=== PATIENT | female | born 1960 | race Caucasian/White ===

== ENCOUNTER 2022-11-30 19:14 | Observation (INO) | payer MEDICARE, MEDICAID, SELFPAY ==
--- NOTE | ~2022-11-30 | CT_ITS ---
EXAMINATION: CT ABDOMEN AND PELVIS WITHOUT CONTRAST CLINICAL INFORMATION: Diarrhea COMPARISON: None available. TECHNIQUE: Multidetector volumetric imaging was performed from the superior aspect of the liver through the pubic symphysis. Sagittal and coronal reformatted images were obtained on the technologist's workstation. This CT examination was performed using dose optimization techniques as appropriate, variously including the following: *Automated exposure control *Adjustment of mA and/or kV according to patient size (this includes techniques or standardized protocols for targeted exams where dose is matched to indication/reason for exam; i.e. extremities or head) *Use of iterative reconstruction technique DLP: 360 mGy-cm FINDINGS: LUNG BASES: The visualized lung bases are unremarkable. LIVER, GALLBLADDER, AND BILIARY TREE: The liver is normal in size, shape, and attenuation. No focal hepatic lesion or biliary ductal dilatation is present. Status post. PANCREAS: Unremarkable. SPLEEN: Unremarkable. ADRENAL GLANDS: Unremarkable. KIDNEYS AND URETERS: The kidneys are normal in size, shape, and attenuation. Bilateral nephrolithiasis present with multiple nonobstructing punctate calculi bilaterally. No hydronephrosis, hydroureter, or ureteral caliculi seen. No perinephric stranding. BLADDER: Unremarkable. GASTROINTESTINAL TRACT: Stomach is distended with gas and food material Colonic diverticula are present without diverticulitis. The small and large bowel are otherwise unremarkable. The appendix is unremarkable. ABDOMINAL WALL: No significant hernia is appreciated. LYMPH NODES: No retroperitoneal lymphadenopathy. VASCULAR: Unremarkable. PELVIC VISCERA: Right ovarian cyst is present measuring 4.7 x 3.7 x 3.8 cm. This cyst is simple appearing and because of its size and the patient's age, a follow-up ultrasound is recommended in 6-12 months. Normal anteverted uterus is present. The left ovary contains some calcification but is unremarkable. No free pelvic fluid. OSSEOUS STRUCTURES: Degenerative changes are seen most prominent at L5-S1. CT/CT abdomen pelvis wo IV con IMPRESSION: 1. Bilateral nonobstructing punctate renal calculi. 2. Colonic diverticula without diverticulitis. 3. Right ovarian cyst. Follow-up ultrasound in 6-12 months is recommended. Fleischner guidelines were followed.
--- NOTE | ~2022-11-30 | CT_ITS ---
EXAMINATION: CT CHEST WITH CONTRAST CLINICAL INFORMATION: Right upper lobe nodule COMPARISON: Chest radiograph 11/30/2022 Small ill-defined nodule right upper lobe. Recommend CT chest. TECHNIQUE: Multidetector volumetric CT imaging of the chest was obtained after the administration of 50 mL of Omnipaque 350 intravenous contrast without immediate adverse reactions. Axial MIP volume rendering provided. Sagittal and coronal reformatted images were obtained. This CT examination was performed using dose optimization techniques as appropriate, variously including the following: *Automated exposure control *Adjustment of mA and/or kV according to patient size (this includes techniques or standardized protocols for targeted exams where dose is matched to indication/reason for exam; i.e. extremities or head) *Use of iterative reconstruction technique DLP: 178 mGy-cm FINDINGS: The exam is markedly degraded by motion artifact. LUNGS: The lungs are clear with no evidence of inflammation or nodules. No corresponding abnormality is seen for the radiographic finding on the chest x-ray. MEDIASTINUM: The mediastinum is normal. PLEURA: There is no pleural effusion. No pleural mass or thickening. AXILLA: No lymphadenopathy. UPPER ABDOMEN: Status post cholecystectomy OSSEOUS STRUCTURES: Mild degenerative changes are present in the spine CT/CT chest w IV con IMPRESSION: A worrisome finding is not present to correspond to the abnormality seen on the chest radiograph. This exam is markedly degraded by motion artifact. Fleischner guidelines were followed.
--- NOTE | ~2022-11-30 | CT_ITS ---
EXAMINATION: CT HEAD WITHOUT CONTRAST CLINICAL INFORMATION: Headache COMPARISON: None. TECHNIQUE: Contiguous axial imaging was performed from the skull base to vertex without intravenous administration of contrast. Coronal and sagittal reformatted images are performed at the CT scanner. [This CT examination was performed using dose optimization techniques as appropriate, variously including the following: *Automated exposure control *Adjustment of mA and/or kV according to patient size (this includes techniques or standardized protocols for targeted exams where dose is matched to indication/reason for exam; i.e. extremities or head) *Use of iterative reconstruction technique] DLP: 555 mGy-cm. FINDINGS: There is no evidence of acute intracranial hemorrhage or territorial infarction. No abnormal mass-effect or midline shift is seen. Fuentes to white matter differentiation is well preserved. No extra-axial fluid collections are identified. There is generalized global volume loss. There is moderate prominence of the ventricles and the sulci . There is mild hypodensity of the periventricular white matter due to chronic small vessel ischemic disease. There are vascular calcifications of the internal carotid arteries bilaterally. There is no osseous abnormality. The mastoid air cells and visualized portions of the paranasal sinuses are well-aerated. CT/CT head/brain wo IV con IMPRESSION: No acute intracranial pathology.
--- NOTE | ~2022-11-30 | XR_ITS ---
EXAMINATION: XR CHEST CLINICAL INFORMATION: Chest pain COMPARISON: None available. TECHNIQUE: Frontal view of the chest was obtained. FINDINGS: There is mild blunting of left CP angle likely pleural thickening. The lungs are expanded without acute consolidation. There is a small ill-defined 6 mm nodule right upper lobe. Heart size is enlarged. Pulmonary vascularity is prominent without congestion. No gross bony abnormality seen. XR/XR chest 1V IMPRESSION: 1. Cardiomegaly with mild pulmonary vascular congestion. 2. Mild blunting of left CP angle likely pleural thickening. 3. Small ill-defined nodule right upper lobe. Recommend CT chest.
[2022-11-30 19:27] VITALS: BP 96/44; BP 96/54; PULSE 70; PULSE 72; RESP 18; TEMP 36.7; O2SAT 98; BMI 23.3
--- NOTE | 2022-11-30 19:45 | ECG_ITS ---
Test Reason : dizz Blood Pressure : / mmHG Vent. Rate : 067 BPM Atrial Rate : 067 BPM P-R Int : 166 ms QRS Dur : 086 ms QT Int : 382 ms P-R-T Axes : 011 -03 018 degrees QTc Int : 403 ms Normal sinus rhythm Normal ECG No previous ECGs available Referred By: Nara Morse Electronically Signed By:MARIA ELENA AIKEN
--- NOTE | 2022-11-30 20:00 | ED.SYNCOPE ---
HPI - Syncope General Chief Complaint: Syncope Stated Complaint: syncopal episode Time Seen by Provider: 11/30/22 19:16 History of Present Illness HPI narrative: Patient is a 62-year-old female from long term complaining of having a syncopal episode while walking to the bathroom. Patient felt very lightheaded dizzy then had a syncopal episode. Staff noted patient passed out for approximately 1 minute. No new chest pain. No bloody stool. The diarrhea was brown in color. Patient feel very weak. Question head injury. Not on blood thinner. Positive history of chronic pain. No coughing congestion upper respiratory symptoms. Related Data Home Medications Medication Instructions Recorded Confirmed aluminum-mag hydroxide-simethicone 30 ml PO QID PRN GI UPSET 11/30/22 11/30/22 200 mg-200 mg-20 mg/5 mL oral susp calcium carbonate 500 mg calcium 500 mg PO Q4H PRN Acid Reflux 11/30/22 11/30/22 (1,250 mg) chewable tablet cholecalciferol (vitamin D3) 25 25 mcg PO DAILY 11/30/22 11/30/22 mcg (1,000 unit) tablet clonazepam 0.5 mg tablet 0.5 mg PO BID PRN Anxiety 11/30/22 11/30/22 cyanocobalamin (vitamin B-12) 100 500 mcg PO DAILY 11/30/22 11/30/22 mcg tablet lidocaine 5 % topical patch 1 patch topical DAILY PRN Pain 11/30/22 11/30/22 lisinopril 10 mg tablet 10 mg PO DAILY 11/30/22 11/30/22 loperamide 2 mg capsule 2 mg PO Q4H PRN Diarrhea 11/30/22 11/30/22 nicotine (polacrilex) 2 mg gum 2 mg PO Q2H PRN CRAVINGS 11/30/22 11/30/22 oxycodone 5 mg tablet 5 mg PO Q6H PRN Pain 11/30/22 11/30/22 quetiapine 25 mg tablet 50 mg PO TID PRN Agitation 11/30/22 11/30/22 trazodone 50 mg tablet 50 mg PO BEDTIME PRN Sleep 11/30/22 11/30/22 Allergies Allergy/AdvReac Type Severity Reaction Status Date / Time No Known Allergies Allergy Verified 11/30/22 19:45 Review of Systems Review of Systems: Positive syncope Yes all other systems are reviewed and are negative [facility] Past Medical History Attestation statement: The following information was validated with the patient. Social History Social History Advance Directives: No Advance Directives Information Provided: No Physical Exam Vital Signs: Vital Signs: Last Vital Signs Temp 98 F 11/30/22 20:52 Pulse 72 11/30/22 20:56 Resp 21 H 11/30/22 20:52 BP 98/46 L 11/30/22 20:56 Pulse Ox 98 11/30/22 20:52 O2 Del Method Room Air 11/30/22 20:52 BMI result Body Mass Index 23.3 Appearance: Alert. Oriented X3. No acute distress. Eyes: Pupils equal, round and reactive to light. ENT: Pharynx normal. Neck: Normal inspection. Neck supple. No lymph nodes noted. No crepitus CVS: Normal heart rate and rhythm. Pulses normal. Normal S1 and S2 Respiratory: No respiratory distress. Breath sounds normal. No Wheezing. No rales Abdomen: Soft and nontender. No rigidity. No distention. good BS x4 Skin: Skin warm and dry. Normal skin color. Normal skin turgor. Extremities: No lower extremity edema. Neurovascular intact to all extremities. No Lacerations. No Rash Neuro: Oriented X 3. No motor deficit. No sensory deficit. Moving all extermities. No slurred speech Medications Administered Discontinued Medications Generic Name Dose Route Start Last Admin Trade Name Freq PRN Reason Stop Dose Admin Sodium Chloride 1,000 mls @ 999 mls/hr 11/30/22 19:45 11/30/22 20:17 Ns IV 11/30/22 20:45 999 mls/hr .Q1H1M AD Administration Ondansetron HCl 4 mg 11/30/22 19:45 11/30/22 20:17 Ondansetron Hcl 4 Mg/2 Ml Vial IVPUSH 11/30/22 19:46 4 mg ONCE ONE Administration Medical Decision Making Medical Decision Making [facility] Narrative: Patient is a 62-year-old female with generalized malaise weakness diarrhea and then had syncopal episode while sitting on a toilet noted to have low blood pressure. Patient's symptoms most likely secondary to dehydration. Patient's LFTs are normal no evidence of biliary issues. CT scan of the head showed no evidence of bleeding. CT scan of the abdomen pelvis showed no acute obstruction abscess perforation. Patient given 2 L of IV fluids. Symptomatic leaf feels improved. Blood pressure still about 100/60. My interpretation patient's EKG showed a sinus pattern heart rate is 70 ME QRS QT within normal limits is no acute ST segment elevation noted. Patient's troponin is less than 3.5. Unlikely this is secondary to cardiac. More likely this is related to diarrhea and dehydration. But given patient's low blood pressure still having weakness generalized malaise after IV fluids. Will admit for IV hydration vasovagal syncope. Case discussed with hospitalist team agree with plan Differential Diagnosis Differential Diagnoses: The differential diagnosis associated with the presentation includes Syncope, head injury, abdominal obstruction, diverticulitis, intracranial bleed, ACS, UTI, COVID Consult Healthcare Provider Management of the patient was discussed with: Hospitalist Lab Data MDM Lab Attestation statement: I reviewed the patient's lab results. 11/30/22 19:51 11/30/22 19:51 Labs: Lab Results 11/30/22 11/30/22 11/30/22 Range/Units 19:51 19:51 19:51 WBC 4.8 (4.8-10.8) X10*3/uL RBC 3.59 L (4.20-5.50) X10*6/uL Hgb 10.9 L (12.0-16.0) g/dl Hct 32.9 L (37.0-47.0) % MCV 91.6 (80.0-98.0) fL MCH 30.4 (27.0-33.0) pg MCHC 33.1 (31.0-35.0) g/dl RDW 13.0 (11.0-16.0) % Plt Count 159 L (160-400) X10*3/uL MPV 11.1 (9.4-12.3) fL Immature Gran % (Auto) 0.2 (0.0-0.4) % Neut % (Auto) 62.4 (45-73) % Lymph % (Auto) 24.1 (20-40) % [place] % (Auto) 10.8 (2-11) % Eos % (Auto) 1.5 (0-4) % Baso % (Auto) 1.0 (0-2) % Lymph # (Auto) 1.2 (1.2-4.9) X10*3/uL [place] # (Auto) 0.5 (0.1-1.2) X10*3/uL Eos # (Auto) 0.1 (0.0-0.4) X10*3/uL Baso # (Auto) 0.1 (0.0-0.2) X10*3/uL Abs Immat Gran (auto) 0.01 (0.00-0.03) X10*3/uL Absolute Neuts (auto) 3.0 (2.0-8.3) x10*3/uL Absolute Nucleated RBC 0.000 (0.0-0.012) X10*3/uL Nucleated RBC % (auto) 0.0 (0.0-0.2) /100WBC Sodium 138 (135-145) mmol/L Potassium 4.2 (3.3-5.1) mmol/L Chloride 106 (96-108) mmol/L Carbon Dioxide 27 (22-29) mmol/L Anion Gap 9 L (12-20) BUN 16 (9-16) mg/dL Creatinine 0.68 (0.5-1.4) mg/dL Estim Creat Clear Calc 66.0 Estimated GFR > 60 Random Glucose 185 H (60-115) mg/dL Lactic Acid (0.5-2.0) mmol/L Calcium 8.2 L (8.4-10.2) mg/dL Total Bilirubin 0.7 (0.0-1.0) mg/dL Direct Bilirubin 0.2 (0.0-0.5) mg/dL AST 14 (5-31) U/L ALT 12 (0-31) U/L Alkaline Phosphatase 54 (39-117) U/L Troponin I High Sens < 3.5 (<3.5-17.0) ng/L Total Protein 5.2 L (6.5-8.0) g/dL Albumin 3.0 L (3.5-5.0) g/dL Lipase 17 (8-78) U/L Urine Color Urine Appearance Urine pH (5.0-9.0) Ur Specific [place] (1.005-1.025) Urine Protein (Neg-Trace) mg/dL Urine Glucose (UA) (Negative) mg/dL Urine Ketones (Negative) mg/dL Urine Blood (Negative) Urine Nitrite (Negative) Ur Leukocyte Esterase (Negative) Urine RBC (0-2) /HPF Urine WBC (0-5) /HPF Ur Squamous Epith Cells (0-2) /HPF Urine Bacteria (None Seen) Hyaline Casts (0-2) /LPF Urine Opiates Screen (Not Detect) Urine Fentanyl Screen (Not Detect) Ur Barbiturates Screen (Not Detect) Ur Phencyclidine Scrn (Not Detect) Ur Amphetamines Screen (Not Detect) U Benzodiazepines Scrn (Not Detect) Urine Cocaine Screen (Not Detect) U Marijuana (THC) Screen (Not Detect) 11/30/22 11/30/22 11/30/22 Range/Units 19:51 21:04 21:04 WBC (4.8-10.8) X10*3/uL RBC (4.20-5.50) X10*6/uL Hgb (12.0-16.0) g/dl Hct (37.0-47.0) % MCV (80.0-98.0) fL MCH (27.0-33.0) pg MCHC (31.0-35.0) g/dl RDW (11.0-16.0) % Plt Count (160-400) X10*3/uL MPV (9.4-12.3) fL Immature Gran % (Auto) (0.0-0.4) % Neut % (Auto) (45-73) % Lymph % (Auto) (20-40) % [place] % (Auto) (2-11) % Eos % (Auto) (0-4) % Baso % (Auto) (0-2) % Lymph # (Auto) (1.2-4.9) X10*3/uL [place] # (Auto) (0.1-1.2) X10*3/uL Eos # (Auto) (0.0-0.4) X10*3/uL Baso # (Auto) (0.0-0.2) X10*3/uL Abs Immat Gran (auto) (0.00-0.03) X10*3/uL Absolute Neuts (auto) (2.0-8.3) x10*3/uL Absolute Nucleated RBC (0.0-0.012) X10*3/uL Nucleated RBC % (auto) (0.0-0.2) /100WBC Sodium (135-145) mmol/L Potassium (3.3-5.1) mmol/L Chloride (96-108) mmol/L Carbon Dioxide (22-29) mmol/L Anion Gap (12-20) BUN (9-16) mg/dL Creatinine (0.5-1.4) mg/dL Estim Creat Clear Calc Estimated GFR Random Glucose (60-115) mg/dL Lactic Acid 1.3 (0.5-2.0) mmol/L Calcium (8.4-10.2) mg/dL Total Bilirubin (0.0-1.0) mg/dL Direct Bilirubin (0.0-0.5) mg/dL AST (5-31) U/L ALT (0-31) U/L Alkaline Phosphatase (39-117) U/L Troponin I High Sens (<3.5-17.0) ng/L Total Protein (6.5-8.0) g/dL Albumin (3.5-5.0) g/dL Lipase (8-78) U/L Urine Color Yellow Urine Appearance Clear Urine pH 6.0 (5.0-9.0) Ur Specific [place] 1.015 (1.005-1.025) Urine Protein Trace (Neg-Trace) mg/dL Urine Glucose (UA) Negative (Negative) mg/dL Urine Ketones Negative (Negative) mg/dL Urine Blood Negative (Negative) Urine Nitrite Negative (Negative) Ur Leukocyte Esterase Small (1+) H (Negative) Urine RBC 0-2 (0-2) /HPF Urine WBC 11-20 H (0-5) /HPF Ur Squamous Epith Cells 11-20 (0-2) /HPF Urine Bacteria 3+ (None Seen) Hyaline Casts 3-5 (0-2) /LPF Urine Opiates Screen Not Detected (Not Detect) Urine Fentanyl Screen Not Detected (Not Detect) Ur Barbiturates Screen Not Detected (Not Detect) Ur Phencyclidine Scrn Not Detected (Not Detect) Ur Amphetamines Screen Not Detected (Not Detect) U Benzodiazepines Scrn Not Detected (Not Detect) Urine Cocaine Screen Not Detected (Not Detect) U Marijuana (THC) Screen Not Detected (Not Detect) External Record Review External record reviewed: Inpatient record Discharge Plan Discharge Clinical Impression: Vasovagal syncope, Head injury Patient Disposition: Admitted As Inpatient Prescriptions: No Action oxycodone 5 mg tablet 5 mg PO Q6H PRN (Reason: Pain) alum-mag hydroxide-simeth [Mylanta] 200-200-20 mg/5 mL Suspension 30 ml PO QID PRN (Reason: GI UPSET) Rx Instructions: administer between meals and at bedtime quetiapine 25 mg tablet 50 mg PO TID PRN (Reason: Agitation) cyanocobalamin (vitamin B-12) 100 mcg tablet 500 mcg PO DAILY loperamide 2 mg Capsule 2 mg PO Q4H PRN (Reason: Diarrhea) Rx Instructions: administer after each loose stool until symptoms controlled; do not exceed 8 mg per 24 hrs trazodone 50 mg Tablet 50 mg PO BEDTIME PRN (Reason: Sleep) nicotine (polacrilex) 2 mg gum 2 mg PO Q2H PRN (Reason: CRAVINGS) clonazepam 0.5 mg tablet 0.5 mg PO BID PRN (Reason: Anxiety) lisinopril 10 mg tablet 10 mg PO DAILY lidocaine 5 % adhesive patch,medicated 1 patch topical DAILY PRN (Reason: Pain) calcium carbonate 500 mg calcium (1,250 mg) Tablet,Chewable 500 mg PO Q4H PRN (Reason: Acid Reflux) cholecalciferol (vitamin D3) 25 mcg (1,000 unit) tablet 25 mcg PO DAILY
[2022-11-30 20:06] LABS: MANUAL DIFF FLAG NO
[2022-11-30 20:12] LABS: Basophils Absolute Auto 0.1 X10*3/uL (0.0-0.2); Eosinophils Absolute Auto 0.1 X10*3/uL (0.0-0.4); Eosinophils Percent Auto 1.5 % (0-4); Hematocrit 32.9 % (37.0-47.0); Hemoglobin 10.9 g/dl (12.0-16.0); Imm Gran Abs Auto 0.01 X10*3/uL (0.00-0.03); Imm Gran Pct Auto 0.2 % (0.0-0.4); Lymphocytes Absolute Auto 1.2 X10*3/uL (1.2-4.9); Lymphocytes Percent Auto 24.1 % (20-40); Mean Corpuscular HGB Conc 33.1 g/dl (31.0-35.0); Mean Corpuscular Hemoglobin 30.4 pg (27.0-33.0); Mean Corpuscular Volume 91.6 fL (80.0-98.0); Mean Platelet Volume 11.1 fL (9.4-12.3); Monocytes Absolute Auto 0.5 X10*3/uL (0.1-1.2); Monocytes Percent Auto 10.8 % (2-11); Neutrophils Percent Auto 62.4 % (45-73); Platelet Count 159 X10*3/uL (160-400); Red Blood Count 3.59 X10*6/uL (4.20-5.50); White Blood Count 4.8 X10*3/uL (4.8-10.8)
[2022-11-30] MEDS: 0.9 % Sodium Chloride 1,000 ML 999 ML IV (20:17)
[2022-11-30] MEDS: ondansetron HCL 4 MG/2 ML VIAL IVPUSH (20:17)
[2022-11-30 20:32] LABS: Lactic Acid 1.3 mmol/L (0.5-2.0)
[2022-11-30 20:36] LABS: Alanine Aminotransferase 12 U/L (0-31); Alkaline Phosphatase 54 U/L (39-117); Anion Gap 9 (12-20); Aspartate Amino Transferase 14 U/L (5-31); Bilirubin Direct 0.2 mg/dL (0.0-0.5); Bilirubin Total 0.7 mg/dL (0.0-1.0); Blood Urea Nitrogen 16 mg/dL (9-16); Calcium 8.2 mg/dL (8.4-10.2); Carbon Dioxide 27 mmol/L (22-29); Chloride 106 mmol/L (96-108); Estimated Glomerular Filt Rate > 60; Glucose Random 185 mg/dL (60-115); Lipase 17 U/L (8-78); Potassium 4.2 mmol/L (3.3-5.1); Sodium 138 mmol/L (135-145); Total Protein 5.2 g/dL (6.5-8.0)
[2022-11-30 20:41] LABS: Troponin-I High Sensitivity < 3.5 ng/L (<3.5-17.0)
[2022-11-30 20:52] VITALS: BP 90/61; PULSE 69; RESP 21; TEMP 36.6; O2SAT 98
[2022-11-30 20:53] VITALS: BP 93/41; PULSE 66
[2022-11-30 20:54] VITALS: BP 97/48; PULSE 67
[2022-11-30 20:56] VITALS: BP 98/46; PULSE 72
[2022-11-30 21:16] LABS: Appearance Urine Clear; Color Urine Yellow; Glucose Urine UA Negative (Negative); Leukocyte Esterase Urine Small (1+) (Negative); Nitrite Urine Negative (Negative); Specific Gravity - Urine 1.015 (1.005-1.025); UMIC TRIGGER UACC YES; Urine Blood Negative (Negative); Urine Ketones Negative (Negative); Urine Protein Trace mg/dL (Neg-Trace)
[2022-11-30 21:20] LABS: Bacteria Urine 3+ (None Seen); RBC Urine 0-2 /HPF (0-2); UACC Culture Trigger YES
[2022-11-30 21:29] LABS: Amphetamine Screen Urine Not Detected (Not Detect); Barbiturates, Urine Not Detected (Not Detect); Benzodiazepines Screen Urine Not Detected (Not Detect); Cannabinoid Screen Urine Not Detected (Not Detect); Cocaine Screen Urine Not Detected (Not Detect); Fentanyl, urine Not Detected (Not Detect); Opiate Screen Urine Not Detected (Not Detect); Phencyclidine Screen Urine Not Detected (Not Detect)
--- NOTE | 2022-11-30 21:36 | PHA.MEDREC ---
Pharmacy Consult ? Medication Reconciliation Pharmacy has completed the medication reconciliation. List fro Yoon peraza. New seroquel order of 50 mg tid prn mary
[2022-11-30 22:00] VITALS: BP 101/50; PULSE 72; RESP 16; TEMP 36.8; O2SAT 97
--- NOTE | 2022-11-30 22:15 | MHC.EDTECH ---
pt 2200 rounding done ,vitals sign taken ,covid swab collected and sent to lab .
[2022-11-30 22:37] LABS: COVID-19 Test Negative (Negative); IDNOW Serial# 9DB6401D
--- NOTE | 2022-11-30 22:37 | PM.IMHP ---
History of Present Illness Date of Service: 11/30/22 Chief Complaint: Syncope This is a 62-year-old female with pertinent history of essential hypertension, gastroesophageal reflux disease, mood disorder, tobacco use disorder who presents to the emergency department for evaluation of syncope. Patient was sent from custodial after she had and syncopal episode while she was walking to the bathroom. Patient states as she got up to walk, she got dizzy and lightheadedness and passed out. She passed out for approximately 1 minute. No palpitations or chest discomfort. No shortness of breath. Patient states he feels weak as she has had episodes of nonbloody emesis and diarrhea over the last 2-3 days which has been improving. Patient denies fever, chills, abdominal pain, changes in urinary habits. In the emergency department, patient was found to be hypotensive. Review of Systems Constitutional: Constitutional: Reports lethargy and Reports malaise ENT: Reports dizziness Cardiovascular: Cardiovascular: Reports no additional cardiovascular complaints Respiratory: Respiratory: Reports no additional respiratory complaints Gastrointestinal: Gastrointestinal: Reports no additional gastrointestinal complaints Genitourinary: Genitourinary: Reports no additional female genitourinary complaints Neurologic: Reports dizziness [facility] Medical History Essential hypertension GERD (gastroesophageal reflux disease) Mood disorder Tobacco use disorder Pertinent family history: no family history of CAD Social History Advance Directives: No Advance Directives Information Provided: No Meds Allergies Allergy/AdvReac Type Severity Reaction Status Date / Time No Known Allergies Allergy Verified 11/30/22 19:45 Active Medications: Current Medications Pharmacy Consult (Consult Rx Perform Med Rec) 1 each MISCELLANE ONCE PRN PRN Reason: Consult order Home Medications Medication Instructions Recorded Confirmed Last Taken Type aluminum-mag hydroxide-simethicone 30 ml PO QID PRN GI UPSET 11/30/22 11/30/22 Unknown History 200 mg-200 mg-20 mg/5 mL oral susp calcium carbonate 500 mg calcium 500 mg PO Q4H PRN Acid Reflux 11/30/22 11/30/22 Unknown History (1,250 mg) chewable tablet cholecalciferol (vitamin D3) 25 25 mcg PO DAILY 11/30/22 11/30/22 Unknown History mcg (1,000 unit) tablet clonazepam 0.5 mg tablet 0.5 mg PO BID PRN Anxiety 11/30/22 11/30/22 Unknown History cyanocobalamin (vitamin B-12) 100 500 mcg PO DAILY 11/30/22 11/30/22 Unknown History mcg tablet lidocaine 5 % topical patch 1 patch topical DAILY PRN Pain 11/30/22 11/30/22 Unknown History lisinopril 10 mg tablet 10 mg PO DAILY 11/30/22 11/30/22 Unknown History loperamide 2 mg capsule 2 mg PO Q4H PRN Diarrhea 11/30/22 11/30/22 Unknown History nicotine (polacrilex) 2 mg gum 2 mg PO Q2H PRN CRAVINGS 11/30/22 11/30/22 Unknown History oxycodone 5 mg tablet 5 mg PO Q6H PRN Pain 11/30/22 11/30/22 Unknown History quetiapine 25 mg tablet 50 mg PO TID PRN Agitation 11/30/22 11/30/22 Unknown History trazodone 50 mg tablet 50 mg PO BEDTIME PRN Sleep 11/30/22 11/30/22 Unknown History Physical Exam Vital Signs and Narrative: Vital Signs: Last Vital Signs Temp 98.2 F 11/30/22 22:00 Pulse 72 11/30/22 22:00 Resp 16 11/30/22 22:00 BP 101/50 L 11/30/22 22:00 Pulse Ox 97 11/30/22 22:00 O2 Del Method Room Air 11/30/22 22:00 BMI result Body Mass Index 23.3 elderly female lying in bed in no distress Neck supple, no JVD Regular rate and rhythm, S1-S2 heard Regular breath sounds bilaterally, no wheezing or crackles appreciated Abdomen soft nontender, no guarding, no rigidity Patient is awake, alert and oriented to self, place, time and person ; no focal motor deficit Psych: Normal mood No pedal edema Results Labs 11/30/22 19:51 11/30/22 19:51 Labs: Laboratory Results - last 24 hr 11/30/22 11/30/22 11/30/22 19:51 19:51 19:51 MCV 91.6 MCH 30.4 MCHC 33.1 RDW 13.0 Plt Count 159 L MPV 11.1 Immature Gran % (Auto) 0.2 Neut % (Auto) 62.4 Lymph % (Auto) 24.1 [place] % (Auto) 10.8 Eos % (Auto) 1.5 Baso % (Auto) 1.0 Lymph # (Auto) 1.2 [place] # (Auto) 0.5 Eos # (Auto) 0.1 Baso # (Auto) 0.1 Abs Immat Gran (auto) 0.01 Absolute Neuts (auto) 3.0 Absolute Nucleated RBC 0.000 Nucleated RBC % (auto) 0.0 Anion Gap 9 L Estim Creat Clear Calc 66.0 Estimated GFR > 60 Random Glucose 185 H Lactic Acid Calcium 8.2 L Total Bilirubin 0.7 Direct Bilirubin 0.2 AST 14 ALT 12 Alkaline Phosphatase 54 Troponin I High Sens < 3.5 Total Protein 5.2 L Albumin 3.0 L Lipase 17 Urine Color Urine Appearance Urine pH Ur Specific [place] Urine Protein Urine Glucose (UA) Urine Ketones Urine Blood Urine Nitrite Ur Leukocyte Esterase Urine RBC Urine WBC Ur Squamous Epith Cells Urine Bacteria Hyaline Casts Urine Opiates Screen Urine Fentanyl Screen Ur Barbiturates Screen Ur Phencyclidine Scrn Ur Amphetamines Screen U Benzodiazepines Scrn Urine Cocaine Screen U Marijuana (THC) Screen 11/30/22 11/30/22 11/30/22 19:51 21:04 21:04 MCV MCH MCHC RDW Plt Count MPV Immature Gran % (Auto) Neut % (Auto) Lymph % (Auto) [place] % (Auto) Eos % (Auto) Baso % (Auto) Lymph # (Auto) [place] # (Auto) Eos # (Auto) Baso # (Auto) Abs Immat Gran (auto) Absolute Neuts (auto) Absolute Nucleated RBC Nucleated RBC % (auto) Anion Gap Estim Creat Clear Calc Estimated GFR Random Glucose Lactic Acid 1.3 Calcium Total Bilirubin Direct Bilirubin AST ALT Alkaline Phosphatase Troponin I High Sens Total Protein Albumin Lipase Urine Color Yellow Urine Appearance Clear Urine pH 6.0 Ur Specific [place] 1.015 Urine Protein Trace Urine Glucose (UA) Negative Urine Ketones Negative Urine Blood Negative Urine Nitrite Negative Ur Leukocyte Esterase Small (1+) H Urine RBC 0-2 Urine WBC 11-20 H Ur Squamous Epith Cells 11-20 Urine Bacteria 3+ Hyaline Casts 3-5 Urine Opiates Screen Not Detected Urine Fentanyl Screen Not Detected Ur Barbiturates Screen Not Detected Ur Phencyclidine Scrn Not Detected Ur Amphetamines Screen Not Detected U Benzodiazepines Scrn Not Detected Urine Cocaine Screen Not Detected U Marijuana (THC) Screen Not Detected Imaging Radiologist's Impressions: Impressions Chest X-Ray 11/30/22 19:54 IMPRESSION: 1. Cardiomegaly with mild pulmonary vascular congestion. 2. Mild blunting of left CP angle likely pleural thickening. 3. Small ill-defined nodule right upper lobe. Recommend CT chest. Head CT 11/30/22 20:24 IMPRESSION: No acute intracranial pathology. Abdomen/Pelvis CT 11/30/22 20:25 IMPRESSION: 1. Bilateral nonobstructing punctate renal calculi. 2. Colonic diverticula without diverticulitis. 3. Right ovarian cyst. Follow-up ultrasound in 6-12 months is recommended. Fleischner guidelines were followed. Assessment and Plan (1) Syncope: Status: Acute Plan This is a 62-year-old female with pertinent history of essential hypertension, gastroesophageal reflux disease, mood disorder, tobacco use disorder who presents to the emergency department for evaluation of syncope. #. orthostatic syncope due to intravascular volume depletion: Resuscitated with IV crystalloids. Repeat orthostatic vital signs in a.m. hold home antihypertensives #. vomiting/diarrhea: Likely viral gastroenteritis. Improving. Continue symptomatic management, defer antibiotics #. mood disorder: Continue home mood stabilizers #. essential hypertension: Hold home lisinopril as above #. tobacco use disorder: Nicotine gum p.r.n. #. chronic opioid use #. right ovarian cyst on imaging. Repeat ultrasound in 6-12 months #. right upper lobe nodule on chest x-ray: Obtaining chest CT #. chronic normocytic anemia #. hyperglycemia: Obtaining Accu-Cheks with sliding scale insulin. A1c pending DVT prophylaxis: Lovenox 40 mg daily Full code Cardiac diet Time Spent With Patient Time: Total time managing care of this patient today ____ minutes. Quality Stroke Does the patient have a stroke diagnosis?: No VTE Prior VTE?: No VTE Risk Level:: Medical - moderate - high VTE Device Contraindication: Treatment Not Indicated VTE Drug Contraindication: N/A - Med Ordered
--- NOTE | 2022-11-30 23:43 | PC.NURSE ---
RN to RN report given, Pt will be transported to room 387 by cryptographic technician, Pt aware of plan.
[2022-11-30] MEDS: Famotidine 20 MG TABLET PO (23:47)
[2022-11-30] MEDS: oxyCODONE HCl Immed Release 5 MG TABLET PO (23:47)
[2022-12-01] VITALS (8 sets, daily range): BP systolic 95–112; BP diastolic 50–58; PULSE 62–76; RESP 17–18; TEMP 36–36.9; O2SAT 95–97
[2022-12-01] MEDS: iohexoL 350 MG/ML 100 ML INFUS..BTL 65 ML IV (00:15)
[2022-12-01 03:17] LABS: Estimated Average Glucose 120 mg/dL; Hemoglobin A1c % 5.8 %
[2022-12-01] MEDS: clonazePAM 0.5 MG TABLET PO ×2 (03:34→15:24)
[2022-12-01 06:54] LABS: MANUAL DIFF FLAG NO
[2022-12-01 06:59] LABS: Basophils Absolute Auto 0.1 X10*3/uL (0.0-0.2); Basophils Percent Auto 0.9 % (0-2); Eosinophils Absolute Auto 0.1 X10*3/uL (0.0-0.4); Hemoglobin 10.7 g/dl (12.0-16.0); Imm Gran Abs Auto 0.01 X10*3/uL (0.00-0.03); Imm Gran Pct Auto 0.2 % (0.0-0.4); Lymphocytes Absolute Auto 1.7 X10*3/uL (1.2-4.9); Lymphocytes Percent Auto 29.7 % (20-40); Mean Corpuscular HGB Conc 32.4 g/dl (31.0-35.0); Mean Corpuscular Hemoglobin 29.6 pg (27.0-33.0); Mean Corpuscular Volume 91.2 fL (80.0-98.0); Mean Platelet Volume 11.6 fL (9.4-12.3); Monocytes Absolute Auto 0.7 X10*3/uL (0.1-1.2); Monocytes Percent Auto 12.2 % (2-11); Neutrophils Absolute Auto 3.1 x10*3/uL (2.0-8.3); Platelet Count 162 X10*3/uL (160-400); Red Blood Count 3.62 X10*6/uL (4.20-5.50); Red Cell Distribution Width 13.1 % (11.0-16.0); White Blood Count 5.6 X10*3/uL (4.8-10.8)
[2022-12-01 07:28] LABS: Anion Gap 9 (12-20); Blood Urea Nitrogen 14 mg/dL (9-16); Calcium 8.5 mg/dL (8.4-10.2); Carbon Dioxide 24 mmol/L (22-29); Chloride 110 mmol/L (96-108); Creatinine Clr Calc Pharmacy 72.4; Estimated Glomerular Filt Rate > 60; Glucose Random 101 mg/dL (60-115); Potassium 4.4 mmol/L (3.3-5.1); Sodium 139 mmol/L (135-145)
[2022-12-01 07:42] LABS: Glucose, Whole Blood 115 mg/dL (60-115)
[2022-12-01] MEDS: 0.9 % Sodium Chloride Flush 3 ML SYRINGE IVFLUSH ×3 (08:59→20:22)
[2022-12-01] MEDS: Cholecalciferol (Vitamin D3) 25 MCG TABLET PO (09:00)
[2022-12-01] MEDS: Cyanocobalamin (Vitamin B-12) 500 MCG TABLET PO (09:00)
[2022-12-01] MEDS: oxyCODONE HCl Immed Release 5 MG TABLET PO ×3 (09:02→21:32)
--- NOTE | 2022-12-01 09:18 | P.PNIM_ITS ---
Subjective Subjective Date of Service: 12/01/22 Interval History: f/u on orthostatic syncope, diarrhea, n/v still has some diarrhea, abd soreness, no vomitting Physical Exam Vital Signs: Vital Signs: Last Vital Signs Temp 98.5 F 12/01/22 07:42 Pulse 62 12/01/22 07:42 Resp 17 12/01/22 07:42 BP 95/50 L 12/01/22 07:42 Pulse Ox 96 12/01/22 07:42 O2 Del Method Room Air 12/01/22 07:42 BMI result Body Mass Index 23.3 Const: Other: General: AO X 3, no acute distress Resp: CTA bilateral CVS: S1,S2,RRR GI: +BS, NT, no distention Skin: No rash Neuro: motor grossly intact Psych: appropriate affect Objective Data Active Medications Acetaminophen (Acetaminophen 325 Mg Tablet) 650 mg PO Q6H PRN PRN Reason: Pain, Mild (Pain Scale 1-3) Al Hydroxide/Mg Hydroxide (Magnesium Hydrox/Alum Hydrox 30 Ml Oral.Susp) 30 ml PO QID PRN PRN Reason: GI UPSET Calcium Carbonate (Calcium Carbonate 750 Mg Tab.Chew) 750 mg PO Q4H PRN PRN Reason: Acid Reflux Clonazepam (Clonazepam 0.5 Mg Tablet) 0.5 mg PO BID PRN PRN Reason: Anxiety Last Admin: 12/01/22 03:34 Dose: 0.5 mg Documented By: KAMRAN Cyanocobalamin (Cyanocobalamin (Vitamin B-12) 500 Mcg Tablet) 500 mcg PO DAILY [facility] Last Admin: 12/01/22 09:00 Dose: 500 mcg Documented By: MARQUIS Famotidine (Famotidine 20 Mg Tablet) 20 mg PO BEDTIME [facility] Last Admin: 11/30/22 23:47 Dose: 20 mg Documented By: SERRANMyra Glucose (Glucose Gel 15 Gm Gel..Gram.) 15 gm PO Q15M PRN; Protocol PRN Reason: per Hypoglycemia Standing Ord. Dextrose (D10) 250 mls @ 750 mls/hr IV Q15M PRN; Protocol PRN Reason: per Hypoglycemia Standing Ord. Insulin Human Lispro (Insulin Lispro 100 Unit/Ml 3 Ml Vial) 0 unit SUBCUT QIDACHS [facility]; Protocol Last Admin: 12/01/22 07:59 Dose: Not Given Documented By: MARQUIS Non-Admin Reason: No Insulin Coverage Lidocaine (Lidocaine 4 % Patch Adh..Patch) 1 patch TRANSDERMA DAILY PRN PRN Reason: Pain Loperamide HCl (Loperamide Hcl 2 Mg Capsule) 2 mg PO Q4H PRN PRN Reason: Diarrhea Melatonin (Melatonin 3 Mg Tablet) 6 mg PO BEDTIME PRN PRN Reason: Insomnia Nicotine Polacrilex (Nicotine Polacrilex 2 Mg Gum) 2 mg BUCCAL Q2H PRN PRN Reason: CRAVINGS Ondansetron HCl (Ondansetron Hcl 4 Mg/2 Ml Vial) 4 mg IVPUSH Q8H PRN PRN Reason: Nausea and Vomiting Oxycodone HCl (Oxycodone Hcl Immed Release 5 Mg Tablet) 5 mg PO Q6H PRN PRN Reason: Pain, Severe (Pain Scale 7-10) Last Admin: 12/01/22 09:02 Dose: 5 mg Documented By: MARQUIS Pharmacy Consult (Consult Rx Perform Med Rec) 1 each MISCELLANE ONCE PRN PRN Reason: Consult order Quetiapine Fumarate (Quetiapine Fumarate 50 Mg Tablet) 50 mg PO TID PRN PRN Reason: Agitation Sodium Chloride (0.9 % Sodium Chloride Flush 3 Ml Syringe) 3 ml IVFLUSH QSHIFT [facility] Last Admin: 12/01/22 08:59 Dose: 3 ml Documented By: MARQUIS Trazodone HCl (Trazodone Hcl 50 Mg Tablet) 50 mg PO BEDTIME PRN PRN Reason: Sleep Vitamin D (Cholecalciferol (Vitamin D3) 25 Mcg Tablet) 25 mcg PO DAILY [facility] Last Admin: 12/01/22 09:00 Dose: 25 mcg Documented By: MARQUIS Labs 12/01/22 05:19 12/01/22 05:19 Labs: Laboratory Results - last 24 hr 11/30/22 11/30/22 11/30/22 19:51 19:51 19:51 MCV 91.6 MCH 30.4 MCHC 33.1 RDW 13.0 Plt Count 159 L MPV 11.1 Immature Gran % (Auto) 0.2 Neut % (Auto) 62.4 Lymph % (Auto) 24.1 [place] % (Auto) 10.8 Eos % (Auto) 1.5 Baso % (Auto) 1.0 Lymph # (Auto) 1.2 [place] # (Auto) 0.5 Eos # (Auto) 0.1 Baso # (Auto) 0.1 Abs Immat Gran (auto) 0.01 Absolute Neuts (auto) 3.0 Absolute Nucleated RBC 0.000 Nucleated RBC % (auto) 0.0 Anion Gap 9 L Estim Creat Clear Calc 66.0 Estimated GFR > 60 POC Glucose Random Glucose 185 H Estimat Average Glucose Hemoglobin A1c % Lactic Acid Calcium 8.2 L Total Bilirubin 0.7 Direct Bilirubin 0.2 AST 14 ALT 12 Alkaline Phosphatase 54 Troponin I High Sens < 3.5 Total Protein 5.2 L Albumin 3.0 L Lipase 17 Urine Color Urine Appearance Urine pH Ur Specific [place] Urine Protein Urine Glucose (UA) Urine Ketones Urine Blood Urine Nitrite Ur Leukocyte Esterase Urine RBC Urine WBC Ur Squamous Epith Cells Urine Bacteria Hyaline Casts Urine Opiates Screen Urine Fentanyl Screen Ur Barbiturates Screen Ur Phencyclidine Scrn Ur Amphetamines Screen U Benzodiazepines Scrn Urine Cocaine Screen U Marijuana (THC) Screen COVID-19 ([facility]) COVID-19 Clin Com 11/30/22 11/30/22 11/30/22 19:51 21:04 21:04 MCV MCH MCHC RDW Plt Count MPV Immature Gran % (Auto) Neut % (Auto) Lymph % (Auto) [place] % (Auto) Eos % (Auto) Baso % (Auto) Lymph # (Auto) [place] # (Auto) Eos # (Auto) Baso # (Auto) Abs Immat Gran (auto) Absolute Neuts (auto) Absolute Nucleated RBC Nucleated RBC % (auto) Anion Gap Estim Creat Clear Calc Estimated GFR POC Glucose Random Glucose Estimat Average Glucose Hemoglobin A1c % Lactic Acid 1.3 Calcium Total Bilirubin Direct Bilirubin AST ALT Alkaline Phosphatase Troponin I High Sens Total Protein Albumin Lipase Urine Color Yellow Urine Appearance Clear Urine pH 6.0 Ur Specific [place] 1.015 Urine Protein Trace Urine Glucose (UA) Negative Urine Ketones Negative Urine Blood Negative Urine Nitrite Negative Ur Leukocyte Esterase Small (1+) H Urine RBC 0-2 Urine WBC 11-20 H Ur Squamous Epith Cells 11-20 Urine Bacteria 3+ Hyaline Casts 3-5 Urine Opiates Screen Not Detected Urine Fentanyl Screen Not Detected Ur Barbiturates Screen Not Detected Ur Phencyclidine Scrn Not Detected Ur Amphetamines Screen Not Detected U Benzodiazepines Scrn Not Detected Urine Cocaine Screen Not Detected U Marijuana (THC) Screen Not Detected COVID-19 ([facility]) COVID-19 Clin Com 11/30/22 11/30/22 12/01/22 22:13 23:03 05:19 MCV 91.2 MCH 29.6 MCHC 32.4 RDW 13.1 Plt Count 162 MPV 11.6 Immature Gran % (Auto) 0.2 Neut % (Auto) 55.0 Lymph % (Auto) 29.7 [place] % (Auto) 12.2 H Eos % (Auto) 2.0 Baso % (Auto) 0.9 Lymph # (Auto) 1.7 [place] # (Auto) 0.7 Eos # (Auto) 0.1 Baso # (Auto) 0.1 Abs Immat Gran (auto) 0.01 Absolute Neuts (auto) 3.1 Absolute Nucleated RBC 0.000 Nucleated RBC % (auto) 0.0 Anion Gap Estim Creat Clear Calc Estimated GFR POC Glucose Random Glucose Estimat Average Glucose 120 Hemoglobin A1c % 5.8 Lactic Acid Calcium Total Bilirubin Direct Bilirubin AST ALT Alkaline Phosphatase Troponin I High Sens Total Protein Albumin Lipase Urine Color Urine Appearance Urine pH Ur Specific [place] Urine Protein Urine Glucose (UA) Urine Ketones Urine Blood Urine Nitrite Ur Leukocyte Esterase Urine RBC Urine WBC Ur Squamous Epith Cells Urine Bacteria Hyaline Casts Urine Opiates Screen Urine Fentanyl Screen Ur Barbiturates Screen Ur Phencyclidine Scrn Ur Amphetamines Screen U Benzodiazepines Scrn Urine Cocaine Screen U Marijuana (THC) Screen COVID-19 ([facility]) Negative COVID-19 Clin Com See Note 12/01/22 12/01/22 05:19 07:39 MCV MCH MCHC RDW Plt Count MPV Immature Gran % (Auto) Neut % (Auto) Lymph % (Auto) [place] % (Auto) Eos % (Auto) Baso % (Auto) Lymph # (Auto) [place] # (Auto) Eos # (Auto) Baso # (Auto) Abs Immat Gran (auto) Absolute Neuts (auto) Absolute Nucleated RBC Nucleated RBC % (auto) Anion Gap 9 L Estim Creat Clear Calc 72.4 Estimated GFR > 60 POC Glucose 115 Random Glucose 101 Estimat Average Glucose Hemoglobin A1c % Lactic Acid Calcium 8.5 Total Bilirubin Direct Bilirubin AST ALT Alkaline Phosphatase Troponin I High Sens Total Protein Albumin Lipase Urine Color Urine Appearance Urine pH Ur Specific [place] Urine Protein Urine Glucose (UA) Urine Ketones Urine Blood Urine Nitrite Ur Leukocyte Esterase Urine RBC Urine WBC Ur Squamous Epith Cells Urine Bacteria Hyaline Casts Urine Opiates Screen Urine Fentanyl Screen Ur Barbiturates Screen Ur Phencyclidine Scrn Ur Amphetamines Screen U Benzodiazepines Scrn Urine Cocaine Screen U Marijuana (THC) Screen COVID-19 ([facility]) COVID-19 Clin Com Assessment and Plan (1) Syncope: Status: Acute (2) Acute diarrhea: Status: Acute Plan 62-year-old female with pertinent history of essential hypertension, gastroesophageal reflux disease, mood disorder, tobacco use disorder who presents to the emergency department for evaluation of syncope. ?#. orthostatic syncope due to intravascular volume depletion from diarrhea -IV hydration -repeat ortho ?#. vomiting/diarrhea:? Likely viral gastroenteritis.? Improving.? Continue symptomatic management, check c dif and GI panel if persists, advance diet ?#. mood disorder: Continue home mood stabilizers ?#. essential hypertension:? Hold home lisinopril as above ?#. tobacco use disorder:? Nicotine gum p.r.n. ?#. chronic opioid use ?#. right ovarian cyst on imaging.? Repeat ultrasound in 6-12 months ?#. right upper lobe nodule on chest x-ray: Obtaining chest CT ?#. chronic normocytic anemia ?#. hyperglycemia d/t acute illness: A1c 5.8 ?DVT prophylaxis: Lovenox 40 mg daily possible dc later today Time Spent With Patient Time: Total time managing care of this patient today ____ minutes. Quality Stroke Does the patient have a stroke diagnosis?: No VTE Prior VTE?: No VTE Risk Level:: Medical - moderate - high VTE Device Contraindication: Treatment Not Indicated VTE Drug Contraindication: N/A - Med Ordered
[2022-12-01 11:22] LABS: Glucose, Whole Blood 130 mg/dL (60-115)
--- NOTE | 2022-12-01 12:24 | MHC.CM.PN ---
Addendum entered by Bessie Duke RN 12/01/22 12:28: PCP IS GREGORIO CAIN OUT OF [place] Original Note: PATIENT IS IN FROM [facility] [place] [phone] PER CONVERSATION WITH SENIOR SOFTWARE DEVELOPMENT ENGINEER,PONCHO, PATIENT WILL NEED A NEW CRISIS EVAL IN ORDER TO RETURN TO FACILITY PATIENT AND MD AWARE. PATIENT IS AGREEABLE TO RETURNING; HOWEVER, IF SHE DOES NOT QUALIFY, SHE IS ASKING FOR A [facility] PATIENT ALSO REPORTS THAT SHE WOULD LIKE TO FILE A POLICE ABOUT A PRIOR INCIDENT IN [place]. CASE MANAGEMENT TO ADDRESS MORE WITH PATIENT ONCE PLAN IS IN PLACE [place]IE 12/01 IN CHART
[2022-12-01 13:26] LABS: CDiff Gene PCR NEGATIVE (Negative)
[2022-12-01 16:34] LABS: Adenovirus F 40/41 Not Detected (Not Detect.); Astrovirus Not Detected (Not Detect.); Campylobacter Not Detected (Not Detect.); Cryptosporidium Not Detected (Not Detect.); Cyclospora cayetanensis Not Detected (Not Detect.); E. coli EAEC Not Detected (Not Detect.); E. coli EPEC Not Detected (Not Detect.); E. coli ETEC Not Detected (Not Detect.); E. coli STEC Not Detected (Not Detect.); Entamoeba histolytica Not Detected (Not Detect.); Giardia lamblia Not Detected (Not Detect.); Plesiomonas shigelloides Not Detected (Not Detect.); Rotavirus A Not Detected (Not Detect.); Salmonella Not Detected (Not Detect.); Sapovirus Not Detected (Not Detect.); Shigella sp./EIEC Not Detected (Not Detect.); Vibrio Not Detected (Not Detect.); Vibrio Cholerae Not Detected (Not Detect.); Yersinia enterocolitica Not Detected (Not Detect.)
[2022-12-01 16:36] LABS: Norovirus GI/GII Detected (Not Detect.)
[2022-12-01 16:39] LABS: Glucose, Whole Blood 125 mg/dL (60-115)
[2022-12-01] MEDS: Loperamide HCl 2 MG CAPSULE PO (16:44)
[2022-12-01] MEDS: Famotidine 20 MG TABLET PO (20:21)
[2022-12-01] MEDS: QUEtiapine Fumarate 50 MG TABLET PO (20:21)
[2022-12-01 20:41] LABS: Glucose, Whole Blood 142 mg/dL (60-115)
[2022-12-02] VITALS (8 sets, daily range): BP systolic 101–128; BP diastolic 36–60; PULSE 59–70; RESP 17–18; TEMP 36.1–37.3; O2SAT 96–98
[2022-12-02 07:26] LABS: Glucose, Whole Blood 118 mg/dL (60-115)
[2022-12-02] MEDS: Lidocaine 4 % Patch ADH..PATCH 1 PATCH TRANSDERMA (07:40)
[2022-12-02] MEDS: oxyCODONE HCl Immed Release 5 MG TABLET PO ×3 (07:40→20:46)
[2022-12-02] MEDS: 0.9 % Sodium Chloride Flush 3 ML SYRINGE IVFLUSH ×3 (07:41→22:38)
[2022-12-02] MEDS: Cyanocobalamin (Vitamin B-12) 500 MCG TABLET PO (07:41)
[2022-12-02] MEDS: Cholecalciferol (Vitamin D3) 25 MCG TABLET PO (07:41)
--- NOTE | 2022-12-02 08:56 | HO.PM.IMPN ---
Subjective Subjective Date of Service: 12/02/22 Interval History: f/u on diarrhea, orthostatic syncope--improved, no diarrhea at this time, tolerating diet. Norovirus detected in GI panel Physical Exam Vital Signs: Vital Signs: Last Vital Signs Temp 97.9 F 12/02/22 08:00 Pulse 60 12/02/22 08:00 Resp 18 12/02/22 08:00 BP 109/55 L 12/02/22 08:00 Pulse Ox 97 12/02/22 08:00 O2 Del Method Room Air 12/02/22 08:00 BMI result Body Mass Index 23.3 Const: Other: General: AO X 3, no acute distress Resp: CTA bilateral CVS: S1,S2,RRR GI: +BS, NT, no distention Skin: No rash Neuro: motor grossly intact Psych: appropriate affect Objective Data Active Medications Acetaminophen (Acetaminophen 325 Mg Tablet) 650 mg PO Q6H PRN PRN Reason: Pain, Mild (Pain Scale 1-3) Al Hydroxide/Mg Hydroxide (Magnesium Hydrox/Alum Hydrox 30 Ml Oral.Susp) 30 ml PO QID PRN PRN Reason: GI UPSET Calcium Carbonate (Calcium Carbonate 750 Mg Tab.Chew) 750 mg PO Q4H PRN PRN Reason: Acid Reflux Clonazepam (Clonazepam 0.5 Mg Tablet) 0.5 mg PO BID PRN PRN Reason: Anxiety Last Admin: 12/01/22 15:24 Dose: 0.5 mg Documented By: MARQUIS Cyanocobalamin (Cyanocobalamin (Vitamin B-12) 500 Mcg Tablet) [address] [facility] Last Admin: 12/02/22 07:41 Dose: 500 mcg Documented By: JASON Famotidine (Famotidine 20 Mg Tablet) [address] [facility] Last Admin: 12/01/22 20:21 Dose: 20 mg Documented By: NABIL Glucose (Glucose Gel 15 Gm Gel..Gram.) 15 gm PO Q15M PRN; Protocol PRN Reason: per Hypoglycemia Standing Ord. Dextrose (D10) 250 mls @ 750 mls/hr IV Q15M PRN; Protocol PRN Reason: per Hypoglycemia Standing Ord. Insulin Human Lispro (Insulin Lispro 100 Unit/Ml 3 Ml Vial) [address] [facility]; Protocol Last Admin: 12/02/22 07:33 Dose: Not Given Documented By: JASON Non-Admin Reason: No Insulin Coverage Lidocaine (Lidocaine 4 % Patch Adh..Patch) 1 patch TRANSDERMA DAILY PRN PRN Reason: Pain Last Admin: 12/02/22 07:40 Dose: 1 patch Documented By: JASON Loperamide HCl (Loperamide Hcl 2 Mg Capsule) 2 mg PO Q4H PRN PRN Reason: Diarrhea Last Admin: 12/01/22 16:44 Dose: 2 mg Documented By: MARQUIS Melatonin (Melatonin 3 Mg Tablet) 6 mg PO BEDTIME PRN PRN Reason: Insomnia Nicotine Polacrilex (Nicotine Polacrilex 2 Mg Gum) 2 mg BUCCAL Q2H PRN PRN Reason: CRAVINGS Ondansetron HCl (Ondansetron Hcl 4 Mg/2 Ml Vial) 4 mg IVPUSH Q8H PRN PRN Reason: Nausea and Vomiting Oxycodone HCl (Oxycodone Hcl Immed Release 5 Mg Tablet) 5 mg PO Q6H PRN PRN Reason: Pain, Severe (Pain Scale 7-10) Last Admin: 12/02/22 07:40 Dose: 5 mg Documented By: JASON Pharmacy Consult (Consult Rx Perform Med Rec) 1 each MISCELLANE ONCE PRN PRN Reason: Consult order Quetiapine Fumarate (Quetiapine Fumarate 50 Mg Tablet) 50 mg PO TID PRN PRN Reason: Agitation Last Admin: 12/01/22 20:21 Dose: 50 mg Documented By: NABIL Sodium Chloride (0.9 % Sodium Chloride Flush 3 Ml Syringe) 3 ml IVFLUSH [facility] Last Admin: 12/02/22 07:41 Dose: 3 ml Documented By: JASON Trazodone HCl (Trazodone Hcl 50 Mg Tablet) 50 mg PO BEDTIME PRN PRN Reason: Sleep Vitamin D (Cholecalciferol (Vitamin D3) 25 Mcg Tablet) [address] [facility] Last Admin: 12/02/22 07:41 Dose: 25 mcg Documented By: JASON Labs 12/01/22 05:19 12/01/22 05:19 Labs: Laboratory Results - last 24 hr 12/01/22 12/01/22 12/01/22 11:16 11:20 11:20 POC Glucose 130 H Stl C. cayetanensis PCR Not Detected Stool Rotavirus A PCR Not Detected Stl Adenov F 40/41 PCR Not Detected Stool Astrovirus (PCR) Not Detected Stool Campylobacter PCR Not Detected Stool Cryptosporidium PCR Not Detected Stl Sh Tox Pr E STEC PCR Not Detected Stool E coli O157 PCR Not applicable Stl Enterotoxigenic E PCR Not Detected Stool EPEC (PCR) Not Detected Stool EAEC (PCR) Not Detected Stl E. histolytica PCR Not Detected Stool Giardia Lamblia PCR Not Detected Stl P. shigelloides PCR Not Detected Stool Salmonella PCR Not Detected Stool Sapovirus (PCR) Not Detected Stl Shigella/EIEC PCR Not Detected St Y.enterocolitica PCR Not Detected Stool Vibrio (PCR) Not Detected Stl Vibrio cholerae PCR Not Detected Stl Norovirus GI/GII PCR Detected A C. difficile Tox B Gene NEGATIVE 12/01/22 12/01/22 12/02/22 16:24 20:37 07:14 POC Glucose 125 H 142 H 118 H Stl C. cayetanensis PCR Stool Rotavirus A PCR Stl Adenov F 40/41 PCR Stool Astrovirus (PCR) Stool Campylobacter PCR Stool Cryptosporidium PCR Stl Sh Tox Pr E STEC PCR Stool E coli O157 PCR Stl Enterotoxigenic E PCR Stool EPEC (PCR) Stool EAEC (PCR) Stl E. histolytica PCR Stool Giardia Lamblia PCR Stl P. shigelloides PCR Stool Salmonella PCR Stool Sapovirus (PCR) Stl Shigella/EIEC PCR St Y.enterocolitica PCR Stool Vibrio (PCR) Stl Vibrio cholerae PCR Stl Norovirus GI/GII PCR C. difficile Tox B Gene Microbiology Microbiology Results: Microbiology 11/30/22 21:21 Urine Culture - Preliminary Urine clean catch - Urine brand top Enterococcus/Streptococcus sp 11/30/22 19:51 Blood Culture - Preliminary Blood - Venous No growth after 24 hours. 11/30/22 19:51 Blood Culture - Preliminary Blood - Venous No growth after 24 hours. Assessment and Plan (1) Acute diarrhea: Status: Acute (2) Syncope: Status: Acute Plan ? She presented with a syncopal episode in setting of diarrhea that is now attributed to norovirus. She is overall improved with no further diarreha at this point but some stomach soreness, CT of abdomen showed no acute finding and she's tolerating regular diet. Orthostatic hypostension was due to dehydration from diarrhea and resolved. #. orthostatic syncope due to intravascular volume depletion from diarrhea, hydrated and resolved. ?#. vomiting/diarrhea:?? due to Norovrius, symptomatic treatment and full resolution expected ?#. mood disorder: Continue home mood stabilizers ?#. essential hypertension:? resume meds upon discharge ?#. tobacco use disorder:? Nicotine gum p.r.n. in hospital and cessation discussed ?#. chronic opioid use ?#. right ovarian cyst on imaging.? Repeat ultrasound in 6-12 months ?#. right upper lobe nodule on chest x-ray: Not seeen on CT of chest ?#. chronic normocytic anemia-stable ?#. hyperglycemia d/t acute illness: A1c 5.8 Time Spent With Patient Time: Total time managing care of this patient today ____ minutes. Quality Stroke Does the patient have a stroke diagnosis?: No VTE Prior VTE?: No VTE Risk Level:: Medical - moderate - high VTE Device Contraindication: Treatment Not Indicated VTE Drug Contraindication: N/A - Med Ordered
--- NOTE | 2022-12-02 11:02 | HO.PM.IMPN ---
Subjective Subjective Date of Service: 12/02/22 Interval History: f/u onn/v, diarrhea, has norovirus overall better, tolerating diet Physical Exam Vital Signs: Vital Signs: Last Vital Signs Temp 97.9 F 12/02/22 08:00 Pulse 65 12/02/22 09:18 Resp 18 12/02/22 08:00 BP 128/59 L 12/02/22 09:18 Pulse Ox 97 12/02/22 08:00 O2 Del Method Room Air 12/02/22 08:00 BMI result Body Mass Index 23.3 Const: Other: General: AO X 3, no acute distress Resp: CTA bilateral CVS: S1,S2,RRR GI: +BS, NT, no distention Skin: No rash Neuro: motor grossly intact Psych: appropriate affect Objective Data Active Medications Acetaminophen (Acetaminophen 325 Mg Tablet) 650 mg PO Q6H PRN PRN Reason: Pain, Mild (Pain Scale 1-3) Al Hydroxide/Mg Hydroxide (Magnesium Hydrox/Alum Hydrox 30 Ml Oral.Susp) 30 ml PO QID PRN PRN Reason: GI UPSET Calcium Carbonate (Calcium Carbonate 750 Mg Tab.Chew) 750 mg PO Q4H PRN PRN Reason: Acid Reflux Clonazepam (Clonazepam 0.5 Mg Tablet) 0.5 mg PO BID PRN PRN Reason: Anxiety Last Admin: 12/01/22 15:24 Dose: 0.5 mg Documented By: MARQUIS Cyanocobalamin (Cyanocobalamin (Vitamin B-12) 500 Mcg Tablet) 500 mcg PO DAILY [facility] Last Admin: 12/02/22 07:41 Dose: 500 mcg Documented By: JASON Famotidine (Famotidine 20 Mg Tablet) 20 mg PO BEDTIME [facility] Last Admin: 12/01/22 20:21 Dose: 20 mg Documented By: NABIL Glucose (Glucose Gel 15 Gm Gel..Gram.) 15 gm PO Q15M PRN; Protocol PRN Reason: per Hypoglycemia Standing Ord. Dextrose (D10) 250 mls @ 750 mls/hr IV Q15M PRN; Protocol PRN Reason: per Hypoglycemia Standing Ord. Insulin Human Lispro (Insulin Lispro 100 Unit/Ml 3 Ml Vial) 0 unit SUBCUT QIDACHS [facility]; Protocol Last Admin: 12/02/22 07:33 Dose: Not Given Documented By: JASON Non-Admin Reason: No Insulin Coverage Lidocaine (Lidocaine 4 % Patch Adh..Patch) 1 patch TRANSDERMA DAILY PRN PRN Reason: Pain Last Admin: 12/02/22 07:40 Dose: 1 patch Documented By: JASON Loperamide HCl (Loperamide Hcl 2 Mg Capsule) 2 mg PO Q4H PRN PRN Reason: Diarrhea Last Admin: 12/01/22 16:44 Dose: 2 mg Documented By: MARQUIS Melatonin (Melatonin 3 Mg Tablet) 6 mg PO BEDTIME PRN PRN Reason: Insomnia Nicotine Polacrilex (Nicotine Polacrilex 2 Mg Gum) 2 mg BUCCAL Q2H PRN PRN Reason: CRAVINGS Ondansetron HCl (Ondansetron Hcl 4 Mg/2 Ml Vial) 4 mg IVPUSH Q8H PRN PRN Reason: Nausea and Vomiting Oxycodone HCl (Oxycodone Hcl Immed Release 5 Mg Tablet) 5 mg PO Q6H PRN PRN Reason: Pain, Severe (Pain Scale 7-10) Last Admin: 12/02/22 07:40 Dose: 5 mg Documented By: JASON Pharmacy Consult (Consult Rx Perform Med Rec) 1 each MISCELLANE ONCE PRN PRN Reason: Consult order Quetiapine Fumarate (Quetiapine Fumarate 50 Mg Tablet) 50 mg PO TID PRN PRN Reason: Agitation Last Admin: 12/01/22 20:21 Dose: 50 mg Documented By: NABIL Sodium Chloride (0.9 % Sodium Chloride Flush 3 Ml Syringe) 3 ml IVFLUSH [facility] Last Admin: 12/02/22 07:41 Dose: 3 ml Documented By: JASON Trazodone HCl (Trazodone Hcl 50 Mg Tablet) 50 mg PO BEDTIME PRN PRN Reason: Sleep Vitamin D (Cholecalciferol (Vitamin D3) 25 Mcg Tablet) 25 mcg PO DAILY [facility] Last Admin: 12/02/22 07:41 Dose: 25 mcg Documented By: JASON Labs 12/01/22 05:19 12/01/22 05:19 Labs: Laboratory Results - last 24 hr 12/01/22 12/01/22 12/01/22 11:16 11:20 11:20 POC Glucose 130 H Stl C. cayetanensis PCR Not Detected Stool Rotavirus A PCR Not Detected Stl Adenov F 40/41 PCR Not Detected Stool Astrovirus (PCR) Not Detected Stool Campylobacter PCR Not Detected Stool Cryptosporidium PCR Not Detected Stl Sh Tox Pr E STEC PCR Not Detected Stool E coli O157 PCR Not applicable Stl Enterotoxigenic E PCR Not Detected Stool EPEC (PCR) Not Detected Stool EAEC (PCR) Not Detected Stl E. histolytica PCR Not Detected Stool Giardia Lamblia PCR Not Detected Stl P. shigelloides PCR Not Detected Stool Salmonella PCR Not Detected Stool Sapovirus (PCR) Not Detected Stl Shigella/EIEC PCR Not Detected St Y.enterocolitica PCR Not Detected Stool Vibrio (PCR) Not Detected Stl Vibrio cholerae PCR Not Detected Stl Norovirus GI/GII PCR Detected A C. difficile Tox B Gene NEGATIVE 12/01/22 12/01/22 12/02/22 16:24 20:37 07:14 POC Glucose 125 H 142 H 118 H Stl C. cayetanensis PCR Stool Rotavirus A PCR Stl Adenov F 40/41 PCR Stool Astrovirus (PCR) Stool Campylobacter PCR Stool Cryptosporidium PCR Stl Sh Tox Pr E STEC PCR Stool E coli O157 PCR Stl Enterotoxigenic E PCR Stool EPEC (PCR) Stool EAEC (PCR) Stl E. histolytica PCR Stool Giardia Lamblia PCR Stl P. shigelloides PCR Stool Salmonella PCR Stool Sapovirus (PCR) Stl Shigella/EIEC PCR St Y.enterocolitica PCR Stool Vibrio (PCR) Stl Vibrio cholerae PCR Stl Norovirus GI/GII PCR C. difficile Tox B Gene Microbiology Microbiology Results: Microbiology 11/30/22 21:21 Urine Culture - Preliminary Urine clean catch - Urine brand top Enterococcus/Streptococcus sp 11/30/22 19:51 Blood Culture - Preliminary Blood - Venous No growth after 24 hours. 11/30/22 19:51 Blood Culture - Preliminary Blood - Venous No growth after 24 hours. Assessment and Plan (1) Acute diarrhea: Status: Acute (2) Syncope: Status: Acute Plan She presented with a syncopal episode in setting of diarrhea that is now attributed to norovirus. She is overall improved with no further diarreha at this point but some stomach soreness, CT of abdomen showed no acute finding and she's tolerating regular diet. Orthostatic hypostension was due to dehydration from diarrhea and resolved. #. orthostatic syncope due to intravascular volume depletion from diarrhea, hydrated and resolved. ?#. vomiting/diarrhea:? due to Norovrius, symptomatic treatment and full resolution expected ?#. mood disorder: Continue home mood stabilizers ?#. essential hypertension:? resume meds upon discharge ?#. tobacco use disorder:? Nicotine gum p.r.n. in hospital and cessation discussed ?#. chronic opioid use ?#. right ovarian cyst on imaging.? Repeat ultrasound in 6-12 months ?#. right upper lobe nodule on chest x-ray: Not seeen on CT of chest ?#. chronic normocytic anemia-stable ?#. hyperglycemia d/t acute illness: A1c 5.8 Time Spent With Patient Time: Total time managing care of this patient today ____ minutes. Quality Stroke Does the patient have a stroke diagnosis?: No VTE Prior VTE?: No VTE Risk Level:: Medical - moderate - high VTE Device Contraindication: Treatment Not Indicated VTE Drug Contraindication: N/A - Med Ordered
[2022-12-02 11:24] LABS: Glucose, Whole Blood 121 mg/dL (60-115)
[2022-12-02] MEDS: Loperamide HCl 2 MG CAPSULE PO (13:41)
[2022-12-02] MEDS: Magnesium Hydrox/Alum Hydrox 30 ML ORAL.SUSP PO (13:41)
[2022-12-02] MEDS: clonazePAM 0.5 MG TABLET PO ×2 (13:41→20:46)
--- NOTE | 2022-12-02 15:49 | MHC.CM.PN ---
PER CONVERSATION WITH CARE TEAM ([id number]) TEAM WILL BE DOWN SHORTLY TO MEET WITH PATIENT. RN AWARE
[2022-12-02 16:09] LABS: Glucose, Whole Blood 106 mg/dL (60-115)
[2022-12-02 20:12] LABS: Glucose, Whole Blood 114 mg/dL (60-115)
[2022-12-02] MEDS: Amoxicillin/Potassium Clav 500 MG TABLET PO (20:45)
[2022-12-02] MEDS: Famotidine 20 MG TABLET PO (20:46)
[2022-12-02] MEDS: Ketorolac Tromethamine 30 MG/ML VIAL IVPUSH (23:08)
[2022-12-03] MEDS: oxyCODONE HCl Immed Release 5 MG TABLET PO ×3 (03:15→16:39)
[2022-12-03 03:37] VITALS: BP 109/56; PULSE 57; RESP 18; TEMP 36.6; O2SAT 97
[2022-12-03 07:19] VITALS: BP 98/54; PULSE 59; RESP 18; TEMP 36.1; O2SAT 97
[2022-12-03 07:27] LABS: Glucose, Whole Blood 183 mg/dL (60-115)
[2022-12-03] MEDS: Cyanocobalamin (Vitamin B-12) 500 MCG TABLET PO (08:28)
[2022-12-03] MEDS: Cholecalciferol (Vitamin D3) 25 MCG TABLET PO (08:28)
[2022-12-03] MEDS: Amoxicillin/Potassium Clav 500 MG TABLET PO (08:28)
[2022-12-03] MEDS: 0.9 % Sodium Chloride Flush 3 ML SYRINGE IVFLUSH (08:29)
[2022-12-03] MEDS: traMADoL HCL 50 MG TABLET PO (09:09)
[2022-12-03] MEDS: clonazePAM 0.5 MG TABLET PO ×2 (09:10→16:39)
[2022-12-03 11:04] LABS: Glucose, Whole Blood 152 mg/dL (60-115)
--- NOTE | 2022-12-03 12:19 | P.DS_ITS ---
DS: Providers Provider Date of Service: 12/03/22 Date of admission: 11/30/22 22:38 Primary care physician: Unknown Physician DS: Diagnosis Discharge Diagnosis (1) Syncope: Status: Acute (2) Acute diarrhea: Status: Acute DS: Summary Hospital Course Hospital Course: Chief Complaint: Syncope ? This is a 62-year-old female with pertinent history of essential hypertension, gastroesophageal reflux disease, mood disorder, tobacco use disorder who presents to the emergency department for evaluation of syncope.? Patient was sent from detention after she had and syncopal episode while she was walking to the bathroom.? Patient states as she got up to walk, she got dizzy and lightheadedness and passed out.? She passed out for approximately 1 minute.? No palpitations or chest discomfort.? No shortness of breath.? Patient states he feels weak as she has had episodes of nonbloody emesis and diarrhea over the last 2-3 days which has been improving.? Patient denies fever, chills, abdominal pain, changes in urinary habits. ? In the emergency department, patient was found to be hypotensive. Hospital course: She presented with a syncopal episode in setting of diarrhea that is now attributed to norovirus. She is overall improved with no further diarreha at this point but some stomach soreness, CT of abdomen showed no acute finding and she's tolerating regular diet. Orthostatic hypostension was due to dehydration from diarrhea and resolved. #. orthostatic syncope due to intravascular volume depletion from diarrhea, hydrated and resolved. ?#. vomiting/diarrhea:? due to Norovrius, symptomatic treatment and full resolution expected, presently without diarrhea ?#. mood disorder: Continue home mood stabilizers ?#. essential hypertension:? resume meds upon discharge ?#. tobacco use disorder:? Nicotine gum p.r.n. in hospital and cessation discussed ?#. chronic opioid use ?#. right ovarian cyst on imaging.? Repeat ultrasound in 6-12 months ?#. right upper lobe nodule on chest x-ray: Not seeen on CT of chest ?#. chronic normocytic anemia-stable ?#. hyperglycemia d/t acute illness: A1c 5.8 Time Spent with Patient Time attestation: Total time managing care of this patient today ____ minutes. Discharge coordination time: Greater than 30 minutes Quality: Safe Use of Opioids Does Pt have an Active Cancer Diagnosis on the Problem List?: No Quality: Stroke Does the patient have a stroke diagnosis?: No Physical Exam Vital Signs: Vital Signs: Selected Entries 12/03/22 07:19 Temperature 96.9 F Pulse Rate 59 Respiratory Rate 18 Blood Pressure 98/54 L Pulse Oximetry 97 Oxygen Delivery Me thod Room Air Const: Other: General: AO X 3, no acute distress Resp: CTA bilateral CVS: S1,S2,RRR GI: +BS, NT, no distention Skin: No rash Neuro: motor grossly intact Psych: appropriate affect DS: Data Data Completed and Pending Labs on day of discharge: Laboratory Results - last 24 hr 12/01/22 12/01/22 12/01/22 11:16 11:20 11:20 POC Glucose 130 H Stl C. cayetanensis PCR Not Detected Stool Rotavirus A PCR Not Detected Stl Adenov F 40/41 PCR Not Detected Stool Astrovirus (PCR) Not Detected Stool Campylobacter PCR Not Detected Stool Cryptosporidium PCR Not Detected Stl Sh Tox Pr E STEC PCR Not Detected Stool E coli O157 PCR Not applicable Stl Enterotoxigenic E PCR Not Detected Stool EPEC (PCR) Not Detected Stool EAEC (PCR) Not Detected Stl E. histolytica PCR Not Detected Stool Giardia Lamblia PCR Not Detected Stl P. shigelloides PCR Not Detected Stool Salmonella PCR Not Detected Stool Sapovirus (PCR) Not Detected Stl Shigella/EIEC PCR Not Detected St Y.enterocolitica PCR Not Detected Stool Vibrio (PCR) Not Detected Stl Vibrio cholerae PCR Not Detected Stl Norovirus GI/GII PCR Detected A C. difficile Tox B Gene NEGATIVE 12/01/22 12/01/22 12/02/22 16:24 20:37 07:14 POC Glucose 125 H 142 H 118 H Stl C. cayetanensis PCR Stool Rotavirus A PCR Stl Adenov F 40/41 PCR Stool Astrovirus (PCR) Stool Campylobacter PCR Stool Cryptosporidium PCR Stl Sh Tox Pr E STEC PCR Stool E coli O157 PCR Stl Enterotoxigenic E PCR Stool EPEC (PCR) Stool EAEC (PCR) Stl E. histolytica PCR Stool Giardia Lamblia PCR Stl P. shigelloides PCR Stool Salmonella PCR Stool Sapovirus (PCR) Stl Shigella/EIEC PCR St Y.enterocolitica PCR Stool Vibrio (PCR) Stl Vibrio cholerae PCR Stl Norovirus GI/GII PCR C. difficile Tox B Gene Preliminary micro results at discharge 11/30/22 19:51 Blood Culture - Preliminary Blood - Venous No growth after 24 hours. 11/30/22 19:51 Blood Culture - Preliminary Blood - Venous No growth after 24 hours. 11/30/22 21:21 Urine Culture - Preliminary Urine clean catch - Urine brand top Culture in progress. Discharge Plan Discharge Anticipated Discharge Date/Time: 12/03/22 11:57 Patient Disposition: Home, Self-Care Discharge Diagnosis: Norovirus diarrhea, dehydation, orthostatic syncope Referrals: Physician,Unknown J [Primary Care Provider] - 1 Week Discharge Medications: New amoxicillin-pot clavulanate 500-125 mg Tablet 500 mg PO Q12H Qty: 10 0RF Continued oxycodone 5 mg tablet 5 mg PO Q6H PRN (Reason: Pain) alum-mag hydroxide-simeth [Mylanta] 200-200-20 mg/5 mL Suspension 30 ml PO QID PRN (Reason: GI UPSET) Rx Instructions: administer between meals and at bedtime quetiapine 25 mg tablet 50 mg PO TID PRN (Reason: Agitation) cyanocobalamin (vitamin B-12) 100 mcg tablet 500 mcg PO DAILY loperamide 2 mg Capsule 2 mg PO Q4H PRN (Reason: Diarrhea) Rx Instructions: administer after each loose stool until symptoms controlled; do not exceed 8 mg per 24 hrs trazodone 50 mg Tablet 50 mg PO BEDTIME PRN (Reason: Sleep) nicotine (polacrilex) 2 mg gum 2 mg PO Q2H PRN (Reason: CRAVINGS) clonazepam 0.5 mg tablet 0.5 mg PO BID PRN (Reason: Anxiety) lisinopril 10 mg tablet 10 mg PO DAILY lidocaine 5 % adhesive patch,medicated 1 patch topical DAILY PRN (Reason: Pain) calcium carbonate 500 mg calcium (1,250 mg) Tablet,Chewable 500 mg PO Q4H PRN (Reason: Acid Reflux) cholecalciferol (vitamin D3) 25 mcg (1,000 unit) tablet 25 mcg PO DAILY Discharge Orders: Discharge Order (Routine); Ordered 12/03/22 Ordered By: Carlos A maciej Diet: Advance to usual diet Activity on Discharge: As tolerated Stand Alone Forms: Patient Portal Discharge page Care Plan Goals: full recovery Health Concerns: norovirus diarrhea, dehydration, orthostatic syncope, depression/hallucinations Plan of Treatment: Drink plenty of fluid, follow up with your doctor in a week, practice good hyigen including viguous hand wash after using washroom Transfer to inpatient Psych wash hands very carefully after using washroom, contact precaution for rest of today Amoxicillin for UTI Assessment: as above
--- NOTE | 2022-12-03 12:27 | MHC.CM.PN ---
PATIENT TRANSFERRED TO INPATIENT PSYCHIATRIC UNIT RN AWARE
--- NOTE | 2022-12-03 13:30 | PC.NURSE ---
Report givento M3 Nurse Nora. Awaiting bed availability.
[2022-12-03] MEDS: Nicotine Polacrilex 2 MG GUM BUCCAL (14:10)
[2022-12-03 16:00] VITALS: BP 116/54; PULSE 71; RESP 18; TEMP 36.6; O2SAT 98
[2022-12-03 17:04] LABS: Glucose, Whole Blood 109 mg/dL (60-115)
== END 2022-12-03 16:54 ==
LOC: HO.ED 21:56 → HO.EDOVER 22:42 → HO.S3 22:45
PROVIDERS: Admitting Provider Student in an Organized Health Care Education/Training Program; Emergency Provider Emergency Medicine Emergency Medical Services; Visit Provider Internal Medicine
DX: R55 Syncope and collapse (principal); R19.7 Diarrhea, unspecified; I10 Essential (primary) hypertension; K21.9 Gastro-esophageal reflux disease without esophagitis; F39 Unspecified mood [affective] disorder; E86.9 Volume depletion, unspecified; R11.10 Vomiting, unspecified; R91.8 Other nonspecific abnormal finding of lung field; D64.9 Anemia, unspecified; R73.9 Hyperglycemia, unspecified; Z79.899 Other long term (current) drug therapy
CPT/HCPCS: 36415; 70450; 71045; 71260; 74176; 80048; 80076; 80307; 81001; 82947; 83036; 83605; 83690; 84484; 85025; 87040; 87086; 87088; 87186; 87493; 87507; 87635; 93005; 96361; 96374; 96375; 99221; 99285; J1885; J2405; Q9967; S9485

== ENCOUNTER 2022-12-03 15:04 | Inpatient (IN) | payer MEDICARE, SELFPAY ==
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
[2022-12-03 18:00] VITALS: BP 116/54; PULSE 71; RESP 20; TEMP 36.6
[2022-12-03 22:30] VITALS: BP 116/73; PULSE 77; RESP 18; TEMP 36.4; O2SAT 98
[2022-12-03] MEDS: traZODone HCL 50 MG TABLET PO (23:36)
[2022-12-03] MEDS: clonazePAM 0.5 MG TABLET PO (23:36)
[2022-12-03] MEDS: Nicotine Polacrilex 2 MG GUM BUCCAL (23:36)
[2022-12-03] MEDS: Amoxicillin/Potassium Clav 500 MG TABLET PO (23:37)
[2022-12-03] MEDS: traMADoL HCL 50 MG TABLET PO (23:53)
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
[2022-12-04 08:15] VITALS: PULSE 69; RESP 18; TEMP 36.9; O2SAT 96
[2022-12-04] MEDS: Amoxicillin/Potassium Clav 500 MG TABLET PO ×2 (08:46→22:02)
[2022-12-04] MEDS: Cyanocobalamin (Vitamin B-12) 500 MCG TABLET PO (08:47)
[2022-12-04] MEDS: Cholecalciferol (Vitamin D3) 25 MCG TABLET PO (08:49)
[2022-12-04] MEDS: Nicotine Polacrilex 2 MG GUM BUCCAL ×4 (10:12→22:02)
[2022-12-04] MEDS: oxyCODONE HCl Immed Release 5 MG TABLET PO ×3 (10:12→23:15)
[2022-12-04] MEDS: traMADoL HCL 50 MG TABLET PO ×2 (11:48→17:11)
[2022-12-04] MEDS: clonazePAM 0.5 MG TABLET PO ×2 (11:49→18:49)
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
[2022-12-04 21:00] VITALS: BP 118/67; PULSE 93; RESP 18; TEMP 36.4; O2SAT 99
[2022-12-04] MEDS: traZODone HCL 50 MG TABLET PO (21:46)
--- NOTE | 2022-12-05 06:39 | PC.NURSE ---
Melissa was noted to perseverant during the evening regarding medications most notable adderall and oxycodone. Melissa denies loos stools stating she had not had any loose stools since wednesday However per her admission report on 12/03/22 and her personal report she had 2 looses stools on 12/03. when this RN was waiting for patient to change her clothes the patient utilized the bathroom and it sounded like the patient was experiencing loose stools, which the patient denied.
[2022-12-05] MEDS: Cholecalciferol (Vitamin D3) 25 MCG TABLET PO (08:51)
[2022-12-05] MEDS: oxyCODONE HCl Immed Release 5 MG TABLET PO ×3 (08:51→23:07)
[2022-12-05] MEDS: Cyanocobalamin (Vitamin B-12) 500 MCG TABLET PO (08:51)
[2022-12-05] MEDS: Amoxicillin/Potassium Clav 500 MG TABLET PO ×2 (08:51→23:06)
[2022-12-05 09:02] VITALS: BP 98/54; PULSE 76; RESP 18; TEMP 36.7; O2SAT 95
--- NOTE | 2022-12-05 09:56 | P.PNPSI_ITS ---
Subjective Subjective Date of Service: 12/05/22 Reason For Visit: Psychosis Subjective Notes: Conditional Voluntary Interim History: Pt continues to report that her phone is being hacked and that her family on the phone are impostors. Pt insits that she needs adderall for her attention problems. She states she needs to go to [facility]. She also reports pain, chronic for what she is being prescribed oxycodone, given tramadol here but suspect regional dedicated truck driver provider did not realized that pt was already on oxy. Mental Status Exam Mental Status Exam Narrative: Appearance: casually groomed, poor hygiene, disheveled, in NAD Behavior: guarded, slightly irritable Psychomotor: no agitation or retardation noted Speech: clear, regular rate/rhythm/volume, spontaneous TP: circumstantial, disorganized at times TC: paranoid delusions of someone hacking phone, some cap gras delusions of people not being who they say they are. Mood: I can't focused Affect: suspicious SI: denies HI: denies AH/VH: appears internally preoccupied, although denies when asked Delusions: paranoid delusions Insight/judgment: impaired x 2. Alert, oriented to place, year, month not situation Diagnostics Vital Signs (24Hr): Vital Signs - 24 hr 12/04/22 21:00 12/05/22 09:02 Temperature 97.6 F 98.0 F Pulse Rate 93 76 Respiratory Rate 18 18 Blood Pressure 118/67 98/54 L Pulse Oximetry 99 95 Oxygen Delivery Method Room Air Room Air Medications Medications Current Medications Acetaminophen (Acetaminophen 325 Mg Tablet) 650 mg PO Q6H PRN PRN Reason: Headache/Pain Mild Scale (1-3) Al Hydroxide/Mg Hydroxide (Magnesium Hydrox/Alum Hydrox 30 Ml Oral.Susp) 30 ml PO Q6H PRN PRN Reason: Heartburn/Nausea Amoxicillin/Clavulanate Potassium (Amoxicillin/Potassium Clav 500 Mg Tablet) 500 mg PO Q12H AD Last Admin: 12/05/22 08:51 Dose: 500 mg Calcium Carbonate (Calcium Carbonate 750 Mg Tab.Chew) 750 mg PO Q4H PRN PRN Reason: Acid Reflux Clonazepam (Clonazepam 0.5 Mg Tablet) 0.5 mg PO BID PRN PRN Reason: Anxiety Last Admin: 12/04/22 18:49 Dose: 0.5 mg Cyanocobalamin (Cyanocobalamin (Vitamin B-12) 500 Mcg Tablet) 500 mcg PO DAILY [facility] Last Admin: 12/05/22 08:51 Dose: 500 mcg Hydroxyzine HCl (Hydroxyzine Hcl 25 Mg Tablet) 25 mg PO Q6H PRN PRN Reason: Anxiety Lisinopril (Lisinopril 10 Mg Tablet) 10 mg PO DAILY [facility]; Protocol Last Admin: 12/05/22 08:52 Dose: Not Given Loperamide HCl (Loperamide Hcl 2 Mg Capsule) 2 mg PO Q4H PRN PRN Reason: Diarrhea Magnesium Hydroxide (Milk Of Magnesia 30 Ml Oral.Susp) 30 ml PO DAILY PRN PRN Reason: Constipation Nicotine Polacrilex (Nicotine Polacrilex 2 Mg Gum) 2 mg BUCCAL Q2H PRN PRN Reason: CRAVINGS Last Admin: 12/04/22 22:02 Dose: 2 mg Oxycodone HCl (Oxycodone Hcl Immed Release 5 Mg Tablet) 5 mg PO Q6H PRN PRN Reason: Pain, Moderate (Pain Scale 4-6 Last Admin: 12/05/22 08:51 Dose: 5 mg Quetiapine Fumarate (Quetiapine Fumarate 50 Mg Tablet) 50 mg PO TID PRN PRN Reason: Agitation Tramadol HCl (Tramadol Hcl 50 Mg Tablet) 50 mg PO BID PRN PRN Reason: Pain, Severe (Pain Scale 7-10) Last Admin: 12/04/22 17:11 Dose: 50 mg Trazodone HCl (Trazodone Hcl 50 Mg Tablet) 50 mg PO BEDTIME MRX1 PRN PRN Reason: Insomnia Last Admin: 12/04/22 21:46 Dose: 50 mg Vitamin D (Cholecalciferol (Vitamin D3) 25 Mcg Tablet) 25 mcg PO DAILY [facility] Last Admin: 12/05/22 08:51 Dose: 25 mcg Allergies Allergies Allergy/AdvReac Type Severity Reaction Status Date / Time No Known Allergies Allergy Verified 11/30/22 19:45 Assessment & Plan Assessment & Plan (1) Schizophrenia, paranoid, subchronic with acute exacerbation: Status: Acute Code(s): F20.0 - Paranoid schizophrenia Plan 12/05 pt continues to decline antipsychotic, scheduled, continues with paranoid delusions. Reason for contiued inpatient stay Substantial Risk for: inability to function Time Spent With Patient Time: Total time managing care of this patient today ____ minutes.
[2022-12-05] MEDS: traMADoL HCL 50 MG TABLET PO ×2 (11:22→19:15)
[2022-12-05] MEDS: clonazePAM 0.5 MG TABLET PO ×2 (11:22→23:06)
[2022-12-05] MEDS: Nicotine Polacrilex 2 MG GUM BUCCAL ×2 (14:18→23:08)
[2022-12-05 22:00] VITALS: BP 110/58; PULSE 71; RESP 18; TEMP 36.4; O2SAT 97
[2022-12-05] MEDS: traZODone HCL 50 MG TABLET PO (23:07)
--- NOTE | 2022-12-06 02:46 | PC.NURSE ---
Melissa was compliant with staying in her room for isolation precautions. she remains perseverant r/t past trauma and expresses c/o her ex-boyfriend and medication needing to be ordered for her ADHDshe stated that she had a formed stool earlier todayno behavioral concerns noted
[2022-12-06 06:00] VITALS: BP 101/55; PULSE 76; RESP 18; TEMP 36.2; O2SAT 97
[2022-12-06] MEDS: Amoxicillin/Potassium Clav 500 MG TABLET PO ×2 (09:03→21:34)
[2022-12-06] MEDS: oxyCODONE HCl Immed Release 5 MG TABLET PO ×3 (09:03→21:34)
[2022-12-06] MEDS: Cholecalciferol (Vitamin D3) 25 MCG TABLET PO (09:03)
[2022-12-06] MEDS: Cyanocobalamin (Vitamin B-12) 500 MCG TABLET PO (09:03)
[2022-12-06] MEDS: Nicotine Polacrilex 2 MG GUM BUCCAL ×2 (09:24→15:12)
--- NOTE | 2022-12-06 20:11 | HO.PSYCHPN ---
Subjective Subjective Date of Service: 12/06/22 Reason For Visit: Psychosis Subjective Notes: Conditional Voluntary Interim History: No change in presentation. Pt continues to report that her phone is being hacked and that her family on the phone are impostors. Pt insist that she needs adderall for her attention problems. She states she needs to go to [facility]. 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 Mental Status Exam Mental Status Exam Narrative: Appearance: casually groomed, poor hygiene, disheveled, in NAD Behavior: guarded, slightly irritable Psychomotor: no agitation or retardation noted Speech: clear, regular rate/rhythm/volume, spontaneous TP: circumstantial, disorganized at times TC: paranoid delusions of someone hacking phone, some cap gras delusions of people not being who they say they are. Mood: I can't focused Affect: suspicious SI: denies HI: denies AH/VH: appears internally preoccupied, although denies when asked Delusions: paranoid delusions Insight/judgment: impaired x 2. Alert, oriented to place, year, month not situation Diagnostics Vital Signs (24Hr): Vital Signs - 24 hr 12/05/22 22:00 12/06/22 06:00 Temperature 97.6 F 97.2 F Pulse Rate 71 76 Respiratory Rate 18 18 Blood Pressure 110/58 L 101/55 L Pulse Oximetry 97 97 Oxygen Delivery Method Room Air Room Air Medications Medications Current Medications Acetaminophen (Acetaminophen 325 Mg Tablet) 650 mg PO Q6H PRN PRN Reason: Headache/Pain Mild Scale (1-3) Al Hydroxide/Mg Hydroxide (Magnesium Hydrox/Alum Hydrox 30 Ml Oral.Susp) 30 ml PO Q6H PRN PRN Reason: Heartburn/Nausea Amoxicillin/Clavulanate Potassium (Amoxicillin/Potassium Clav 500 Mg Tablet) 500 mg PO Q12H AD Stop: 12/08/22 11:00 Last Admin: 12/06/22 09:03 Dose: 500 mg Calcium Carbonate (Calcium Carbonate 750 Mg Tab.Chew) 750 mg PO Q4H PRN PRN Reason: Acid Reflux Clonazepam (Clonazepam 0.5 Mg Tablet) 0.5 mg PO BID PRN PRN Reason: Anxiety Last Admin: 12/05/22 23:06 Dose: 0.5 mg Cyanocobalamin (Cyanocobalamin (Vitamin B-12) 500 Mcg Tablet) 500 mcg PO DAILY [facility] Last Admin: 12/06/22 09:03 Dose: 500 mcg Hydroxyzine HCl (Hydroxyzine Hcl 25 Mg Tablet) 25 mg PO Q6H PRN PRN Reason: Anxiety Lisinopril (Lisinopril 10 Mg Tablet) 10 mg PO DAILY [facility]; Protocol Last Admin: 12/06/22 09:04 Dose: Not Given Loperamide HCl (Loperamide Hcl 2 Mg Capsule) 2 mg PO Q4H PRN PRN Reason: Diarrhea Magnesium Hydroxide (Milk Of Magnesia 30 Ml Oral.Susp) 30 ml PO DAILY PRN PRN Reason: Constipation Nicotine Polacrilex (Nicotine Polacrilex 2 Mg Gum) 2 mg BUCCAL Q2H PRN PRN Reason: CRAVINGS Last Admin: 12/06/22 15:12 Dose: 2 mg Oxycodone HCl (Oxycodone Hcl Immed Release 5 Mg Tablet) 5 mg PO Q6H PRN PRN Reason: Pain, Moderate (Pain Scale 4-6 Last Admin: 12/06/22 15:11 Dose: 5 mg Quetiapine Fumarate (Quetiapine Fumarate 50 Mg Tablet) 50 mg PO TID PRN PRN Reason: Agitation Trazodone HCl (Trazodone Hcl 50 Mg Tablet) 50 mg PO BEDTIME PRN PRN Reason: Insomnia Vitamin D (Cholecalciferol (Vitamin D3) 25 Mcg Tablet) 25 mcg PO DAILY [facility] Last Admin: 12/06/22 09:03 Dose: 25 mcg Allergies Allergies Allergy/AdvReac Type Severity Reaction Status Date / Time No Known Allergies Allergy Verified 11/30/22 19:45 Assessment & Plan Assessment & Plan (1) Schizophrenia, paranoid, subchronic with acute exacerbation: Status: Acute Code(s): F20.0 - Paranoid schizophrenia Plan Mrs. Bansal is a 62 year-old woman with hx consistent with schizophrenia who was initially transferred to [facility] from [facility] for treatment of paranoid delusions and psychosis. Pt was transferred to [facility] via EMS after pt had episode of syncope and presented hypotensive. In ED, pt found to have hypotension s/s to dehydration due to diarrhea and vomiting in setting of norovirus. Pt briefly admitted medically for management of hypotension. On the unit, pt presents with paranoid delusions, cap gras delusions thinking people are not who they say they are and she can't trust that family calling hospital are truly her family. Pt declines starting an antipsychotic. Pt insists she needs adderall for attention problems. Pt explained stimulant will worsened delusions, and psychosis. Pt declines any other medication at this. 12/06 continue tx. declines antipsychotic scheduled. Reason for contiued inpatient stay Substantial Risk for: inability to function Time Spent With Patient Time: Total time managing care of this patient today ____ minutes.
[2022-12-06] MEDS: clonazePAM 0.5 MG TABLET PO (21:34)
[2022-12-06] MEDS: traZODone HCL 50 MG TABLET PO (21:34)
[2022-12-06 21:40] VITALS: BP 115/71; PULSE 86; RESP 18; TEMP 36.6; O2SAT 97
[2022-12-07] MEDS: Cyanocobalamin (Vitamin B-12) 500 MCG TABLET PO (08:07)
[2022-12-07] MEDS: oxyCODONE HCl Immed Release 5 MG TABLET PO ×3 (08:07→20:40)
[2022-12-07] MEDS: Cholecalciferol (Vitamin D3) 25 MCG TABLET PO (08:07)
[2022-12-07] MEDS: Amoxicillin/Potassium Clav 500 MG TABLET PO ×2 (08:07→20:40)
[2022-12-07] MEDS: Nicotine Polacrilex 2 MG GUM BUCCAL ×3 (10:45→20:40)
[2022-12-07] MEDS: clonazePAM 0.5 MG TABLET PO ×2 (12:14→20:40)
[2022-12-07 12:15] VITALS: BP 112/57; PULSE 78; RESP 18; TEMP 36.7; O2SAT 98
--- NOTE | 2022-12-07 13:38 | P.PNPSI_ITS ---
Subjective Subjective Date of Service: 12/07/22 Reason For Visit: Psychosis Interim History: No change in presentation. Pt continues to report that her phone is being hacked and that her family on the phone are impostors. Pt insist that she needs adderall for her attention problems, despite explaining that given psychosis it may worsen symptoms. Pt asks for a second opinion. She also reports pain, chronic for what she is being prescribed oxycodone, given tramadol. Mental Status Exam Mental Status Exam Narrative: Appearance: casually groomed, poor hygiene, disheveled, in NAD Behavior: guarded, slightly irritable Psychomotor: no agitation or retardation noted Speech: clear, regular rate/rhythm/volume, spontaneous TP: circumstantial, disorganized at times TC: paranoid delusions of someone hacking phone, some cap gras delusions of people not being who they say they are. Mood: I can't focused Affect: suspicious SI: denies HI: denies AH/VH: appears internally preoccupied, although denies when asked Delusions: paranoid delusions Insight/judgment: impaired x 2. Alert, oriented to place, year, month not situation Diagnostics Vital Signs (24Hr): Vital Signs - 24 hr 12/06/22 21:40 12/07/22 12:15 Temperature 97.9 F 98.0 F Pulse Rate 86 78 Respiratory Rate 18 18 Blood Pressure 115/71 112/57 L Pulse Oximetry 97 98 Oxygen Delivery Method Room Air Room Air Medications Medications Current Medications Acetaminophen (Acetaminophen 325 Mg Tablet) 650 mg PO Q6H PRN PRN Reason: Headache/Pain Mild Scale (1-3) Al Hydroxide/Mg Hydroxide (Magnesium Hydrox/Alum Hydrox 30 Ml Oral.Susp) 30 ml PO Q6H PRN PRN Reason: Heartburn/Nausea Amoxicillin/Clavulanate Potassium (Amoxicillin/Potassium Clav 500 Mg Tablet) 500 mg PO Q12H AD Stop: 12/08/22 11:00 Last Admin: 12/07/22 08:07 Dose: 500 mg Calcium Carbonate (Calcium Carbonate 750 Mg Tab.Chew) 750 mg PO Q4H PRN PRN Reason: Acid Reflux Clonazepam (Clonazepam 0.5 Mg Tablet) 0.5 mg PO BID PRN PRN Reason: Anxiety Last Admin: 12/07/22 12:14 Dose: 0.5 mg Cyanocobalamin (Cyanocobalamin (Vitamin B-12) 500 Mcg Tablet) 500 mcg PO DAILY [facility] Last Admin: 12/07/22 08:07 Dose: 500 mcg Hydroxyzine HCl (Hydroxyzine Hcl 25 Mg Tablet) 25 mg PO Q6H PRN PRN Reason: Anxiety Lisinopril (Lisinopril 10 Mg Tablet) 10 mg PO DAILY [facility]; Protocol Last Admin: 12/07/22 08:07 Dose: Not Given Loperamide HCl (Loperamide Hcl 2 Mg Capsule) 2 mg PO Q4H PRN PRN Reason: Diarrhea Magnesium Hydroxide (Milk Of Magnesia 30 Ml Oral.Susp) 30 ml PO DAILY PRN PRN Reason: Constipation Nicotine Polacrilex (Nicotine Polacrilex 2 Mg Gum) 2 mg BUCCAL Q2H PRN PRN Reason: CRAVINGS Last Admin: 12/07/22 10:45 Dose: 2 mg Oxycodone HCl (Oxycodone Hcl Immed Release 5 Mg Tablet) 5 mg PO Q6H PRN PRN Reason: Pain, Moderate (Pain Scale 4-6 Last Admin: 12/07/22 08:07 Dose: 5 mg Quetiapine Fumarate (Quetiapine Fumarate 50 Mg Tablet) 50 mg PO TID PRN PRN Reason: Agitation Trazodone HCl (Trazodone Hcl 50 Mg Tablet) 50 mg PO BEDTIME PRN PRN Reason: Insomnia Last Admin: 12/06/22 21:34 Dose: 50 mg Vitamin D (Cholecalciferol (Vitamin D3) 25 Mcg Tablet) 25 mcg PO DAILY [facility] Last Admin: 12/07/22 08:07 Dose: 25 mcg Allergies Allergies Allergy/AdvReac Type Severity Reaction Status Date / Time No Known Allergies Allergy Verified 11/30/22 19:45 Assessment & Plan Assessment & Plan (1) Schizophrenia, paranoid, subchronic with acute exacerbation: Status: Acute Code(s): F20.0 - Paranoid schizophrenia Plan Mrs. Bansal is a 62 year-old woman with hx consistent with schizophrenia who was initially transferred to [facility] from [facility] for treatment of paranoid delusions and psychosis. Pt was transferred to [facility] via EMS after pt had episode of syncope and presented hypotensive. In ED, pt found to have hypotension s/s to dehydration due to diarrhea and vomiting in setting of norovirus. Pt briefly admitted medically for management of hypotension. On the unit, pt presents with paranoid delusions, cap gras delusions thinking people are not who they say they are and she can't trust that family calling hospital are truly her family. Pt declines starting an antipsychotic. Pt insists she needs adderall for attention problems. Pt explained stimulant will worsened delusions, and psychosis. Pt declines any other medication at this. 12/06 continue tx. declines antipsychotic scheduled. 12/07 continue tx declines antipsychotic Reason for contiued inpatient stay Substantial Risk for: inability to function Time Spent With Patient Time: Total time managing care of this patient today ____ minutes.
[2022-12-07 20:05] VITALS: BP 119/61; PULSE 76; RESP 18; TEMP 36.4; O2SAT 97
[2022-12-07] MEDS: traZODone HCL 50 MG TABLET PO ×2 (20:41→21:46)
[2022-12-07] MEDS: Milk of Magnesia 30 ML ORAL.SUSP PO (21:46)
--- NOTE | 2022-12-07 21:55 | PC.NURSE ---
Melissa is noted to be pleasant and cooperative, she continues to c/o neck back and knee pain. she received oxycodone 5mg with moderate effect she requested a repeat dose of her HS prn trazodone and requested Milk of Magnesia as she states she has not had a bowel movement since 12/05 and is starting to feel mildly constipated. she is not noted to have any delusional thought content during this writers assessment.
[2022-12-08] MEDS: oxyCODONE HCl Immed Release 5 MG TABLET PO ×3 (05:56→16:53)
[2022-12-08 08:15] VITALS: BP 101/65; PULSE 73; RESP 18; TEMP 36.6; O2SAT 97
[2022-12-08] MEDS: Amoxicillin/Potassium Clav 500 MG TABLET PO (08:57)
[2022-12-08] MEDS: clonazePAM 0.5 MG TABLET PO ×2 (08:58→21:29)
[2022-12-08] MEDS: Cyanocobalamin (Vitamin B-12) 500 MCG TABLET PO (08:58)
[2022-12-08] MEDS: Cholecalciferol (Vitamin D3) 25 MCG TABLET PO (08:59)
[2022-12-08] MEDS: Nicotine Polacrilex 2 MG GUM BUCCAL ×2 (08:59→19:57)
[2022-12-08] MEDS: traZODone HCL 50 MG TABLET PO ×2 (19:58→21:34)
[2022-12-08 19:59] VITALS: BP 102/59; PULSE 74; TEMP 36.7; O2SAT 97
--- NOTE | 2022-12-08 21:46 | HO.PSYCHPN ---
Subjective Subjective Date of Service: 12/08/22 Reason For Visit: Psychosis Subjective Notes: Conditional Voluntary Interim History: No change in presentation. Pt reports doing well, concern about man following her but feels safe here. She reports sleeping and eating well. No episodes of diarrhea. Pt wants to go to intermediate in [facility], comfortable here in unit. No SI/HI. No aggression towards self or others. No insight into illness. Medication Compliance: Yes Mental Status Exam Mental Status Exam Narrative: Appearance: casually groomed, poor hygiene, disheveled, in NAD Behavior: guarded, slightly irritable Psychomotor: no agitation or retardation noted Speech: clear, regular rate/rhythm/volume, spontaneous TP: circumstantial, disorganized at times TC: paranoid delusions of someone hacking phone, some cap gras delusions of people not being who they say they are. Mood: I can't focused Affect: suspicious SI: denies HI: denies AH/VH: appears internally preoccupied, although denies when asked Delusions: paranoid delusions Insight/judgment: impaired x 2. Alert, oriented to place, year, month not situation Diagnostics Vital Signs (24Hr): Vital Signs - 24 hr 12/08/22 08:15 12/08/22 19:59 Temperature 97.9 F 98.0 F Pulse Rate 73 74 Respiratory Rate 18 Blood Pressure 101/65 102/59 L Pulse Oximetry 97 97 Oxygen Delivery Method Room Air Room Air Medications Medications Current Medications Acetaminophen (Acetaminophen 325 Mg Tablet) 650 mg PO Q6H PRN PRN Reason: Headache/Pain Mild Scale (1-3) Al Hydroxide/Mg Hydroxide (Magnesium Hydrox/Alum Hydrox 30 Ml Oral.Susp) 30 ml PO Q6H PRN PRN Reason: Heartburn/Nausea Calcium Carbonate (Calcium Carbonate 750 Mg Tab.Chew) 750 mg PO Q4H PRN PRN Reason: Acid Reflux Clonazepam (Clonazepam 0.5 Mg Tablet) 0.5 mg PO BID PRN PRN Reason: anxiety Last Admin: 12/08/22 21:29 Dose: 0.5 mg Cyanocobalamin (Cyanocobalamin (Vitamin B-12) 500 Mcg Tablet) 500 mcg PO DAILY AD Last Admin: 12/08/22 08:58 Dose: 500 mcg Hydroxyzine HCl (Hydroxyzine Hcl 25 Mg Tablet) 25 mg PO Q6H PRN PRN Reason: Anxiety Lisinopril (Lisinopril 10 Mg Tablet) 10 mg PO DAILY [facility]; Protocol Last Admin: 12/08/22 08:58 Dose: Not Given Loperamide HCl (Loperamide Hcl 2 Mg Capsule) 2 mg PO Q4H PRN PRN Reason: Diarrhea Magnesium Hydroxide (Milk Of Magnesia 30 Ml Oral.Susp) 30 ml PO DAILY PRN PRN Reason: Constipation Last Admin: 12/07/22 21:46 Dose: 30 ml Nicotine Polacrilex (Nicotine Polacrilex 2 Mg Gum) 2 mg BUCCAL Q2H PRN PRN Reason: CRAVINGS Last Admin: 12/08/22 19:57 Dose: 2 mg Oxycodone HCl (Oxycodone Hcl Immed Release 5 Mg Tablet) 5 mg PO Q6H PRN PRN Reason: Pain, Moderate (Pain Scale 4-6 Last Admin: 12/08/22 16:53 Dose: 5 mg Quetiapine Fumarate (Quetiapine Fumarate 50 Mg Tablet) 50 mg PO TID PRN PRN Reason: Agitation Trazodone HCl (Trazodone Hcl 50 Mg Tablet) 50 mg PO BEDTIME PRN PRN Reason: Insomnia Last Admin: 12/08/22 21:34 Dose: 50 mg Vitamin D (Cholecalciferol (Vitamin D3) 25 Mcg Tablet) 25 mcg PO DAILY [facility] Last Admin: 12/08/22 08:59 Dose: 25 mcg Allergies Allergies Allergy/AdvReac Type Severity Reaction Status Date / Time No Known Allergies Allergy Verified 11/30/22 19:45 Assessment & Plan Assessment & Plan (1) Schizophrenia, paranoid, subchronic with acute exacerbation: Status: Acute Code(s): F20.0 - Paranoid schizophrenia Plan Mrs. Bansal is a 62 year-old woman with hx consistent with schizophrenia who was initially transferred to [facility] from [facility] for treatment of paranoid delusions and psychosis. Pt was transferred to [facility] via EMS after pt had episode of syncope and presented hypotensive. In ED, pt found to have hypotension s/s to dehydration due to diarrhea and vomiting in setting of norovirus. Pt briefly admitted medically for management of hypotension. On the unit, pt presents with paranoid delusions, cap gras delusions thinking people are not who they say they are and she can't trust that family calling hospital are truly her family. Pt declines starting an antipsychotic. Pt insists she needs adderall for attention problems. Pt explained stimulant will worsened delusions, and psychosis. Pt declines any other medication at this. 12/06 continue tx. declines antipsychotic scheduled. 12/07 continue tx 12/08 continue tx. d/c sometime this week to intermediate in [place]. Reason for contiued inpatient stay Substantial Risk for: inability to function Time Spent With Patient Time: Total time managing care of this patient today ____ minutes.
[2022-12-09 06:00] VITALS: BP 121/60; PULSE 70; RESP 18; TEMP 36.7; O2SAT 97
[2022-12-09] MEDS: clonazePAM 0.5 MG TABLET PO ×2 (08:43→20:51)
[2022-12-09] MEDS: oxyCODONE HCl Immed Release 5 MG TABLET PO ×2 (08:43→20:50)
[2022-12-09] MEDS: Cyanocobalamin (Vitamin B-12) 500 MCG TABLET PO (08:43)
[2022-12-09] MEDS: Cholecalciferol (Vitamin D3) 25 MCG TABLET PO (08:44)
[2022-12-09] MEDS: Nicotine Polacrilex 2 MG GUM BUCCAL (09:45)
[2022-12-09] MEDS: QUEtiapine Fumarate 50 MG TABLET PO (09:46)
--- NOTE | 2022-12-09 15:47 | HO.PSYCHPN ---
Subjective Subjective Date of Service: 12/09/22 Reason For Visit: Psychosis Interim History: seen with CARLITA higgins. irritable, labile, delusional. c/o pain, saying she needs multiple surgeries. asking about tramadol and adderall, both are declined. pt becomes agitated at MD's positions and the rationales provided for them (that a single narcotic is adequate to address her pain complaints, without commenting on dosing or frequency, and tramadol adds nothing substantially helpful as a second opioid medication. that she reason for her thinking and concentrating difficulties is psychotic disorder and therefore stimulants are not indicated). per staff, med and meal compliant. pleasant, sleeping well. misses her ipad. Mental Status Exam Mental Status Exam Narrative: Appearance: casually groomed, poor hygiene, disheveled, in NAD Behavior: guarded, irritable Psychomotor: no agitation or retardation noted Speech: clear, regular rate/rhythm/volume, spontaneous TP: circumstantial, disorganized at times TC: paranoid delusions Mood: not assessed Affect: hyper-intense, mod-labile SI: none expressed HI: none expressed AH/VH: none expressed Delusions: paranoid delusions Insight/judgment: impaired x 2. Alert, oriented to place, year, month not situation Diagnostics Vital Signs (24Hr): Vital Signs - 24 hr 12/08/22 19:59 12/09/22 06:00 Temperature 98.0 F 98.1 F Pulse Rate 74 70 Respiratory Rate 18 Blood Pressure 102/59 L 121/60 Pulse Oximetry 97 97 Oxygen Delivery Method Room Air Room Air Medications Medications Current Medications Acetaminophen (Acetaminophen 325 Mg Tablet) 650 mg PO Q6H PRN PRN Reason: Headache/Pain Mild Scale (1-3) Al Hydroxide/Mg Hydroxide (Magnesium Hydrox/Alum Hydrox 30 Ml Oral.Susp) 30 ml PO Q6H PRN PRN Reason: Heartburn/Nausea Calcium Carbonate (Calcium Carbonate 750 Mg Tab.Chew) 750 mg PO Q4H PRN PRN Reason: Acid Reflux Clonazepam (Clonazepam 0.5 Mg Tablet) 0.5 mg PO BID PRN PRN Reason: anxiety Last Admin: 12/09/22 08:43 Dose: 0.5 mg Cyanocobalamin (Cyanocobalamin (Vitamin B-12) 500 Mcg Tablet) 500 mcg PO DAILY AD Last Admin: 12/09/22 08:43 Dose: 500 mcg Hydroxyzine HCl (Hydroxyzine Hcl 25 Mg Tablet) 25 mg PO Q6H PRN PRN Reason: Anxiety Lisinopril (Lisinopril 10 Mg Tablet) 10 mg PO DAILY [facility]; Protocol Last Admin: 12/09/22 08:41 Dose: Not Given Loperamide HCl (Loperamide Hcl 2 Mg Capsule) 2 mg PO Q4H PRN PRN Reason: Diarrhea Magnesium Hydroxide (Milk Of Magnesia 30 Ml Oral.Susp) 30 ml PO DAILY PRN PRN Reason: Constipation Last Admin: 12/07/22 21:46 Dose: 30 ml Nicotine Polacrilex (Nicotine Polacrilex 2 Mg Gum) 2 mg BUCCAL Q2H PRN PRN Reason: CRAVINGS Last Admin: 12/09/22 09:45 Dose: 2 mg Oxycodone HCl (Oxycodone Hcl Immed Release 5 Mg Tablet) 5 mg PO Q6H PRN PRN Reason: Pain, Moderate (Pain Scale 4-6 Quetiapine Fumarate (Quetiapine Fumarate 50 Mg Tablet) 50 mg PO TID PRN PRN Reason: Agitation Last Admin: 12/09/22 09:46 Dose: 50 mg Trazodone HCl (Trazodone Hcl 50 Mg Tablet) 50 mg PO BEDTIME PRN PRN Reason: Insomnia Last Admin: 12/08/22 21:34 Dose: 50 mg Vitamin D (Cholecalciferol (Vitamin D3) 25 Mcg Tablet) 25 mcg PO DAILY AD Last Admin: 12/09/22 08:44 Dose: 25 mcg Allergies Allergies Allergy/AdvReac Type Severity Reaction Status Date / Time acetaminophen Allergy Unknown Verified 12/09/22 08:51 ibuprofen [From Motrin] Allergy Unknown Verified 12/09/22 08:51 pseudoephedrine Allergy Unknown Verified 12/09/22 08:51 [From Sudafed] Assessment & Plan Assessment & Plan (1) Schizophrenia, paranoid, subchronic with acute exacerbation: Status: Acute Code(s): F20.0 - Paranoid schizophrenia Plan Mrs. Bansal is a 62 year-old woman with hx consistent with schizophrenia who was initially transferred to [facility] from [facility] for treatment of paranoid delusions and psychosis. Pt was transferred to [facility] via EMS after pt had episode of syncope and presented hypotensive. In ED, pt found to have hypotension s/s to dehydration due to diarrhea and vomiting in setting of norovirus. Pt briefly admitted medically for management of hypotension. On the unit, pt presents with paranoid delusions, cap gras delusions thinking people are not who they say they are and she can't trust that family calling hospital are truly her family. Pt declines starting an antipsychotic. Pt insists she needs adderall for attention problems. Pt explained stimulant will worsened delusions, and psychosis. Pt declines any other medication at this. 12/06 continue tx. declines antipsychotic scheduled. 12/07 continue tx 12/08 continue tx. d/c sometime this week to [facility] [place]. 12/09: continue current mgmt. discharge tomorrow. Reason for contiued inpatient stay Substantial Risk for: inability to function and rapid decompensation Time Spent With Patient Time: Total time managing care of this patient today _25___ minutes.
[2022-12-09 20:15] VITALS: BP 122/54; PULSE 78; RESP 16; TEMP 36.6; O2SAT 98
[2022-12-09] MEDS: traZODone HCL 50 MG TABLET PO ×2 (20:50→22:19)
[2022-12-09] MEDS: Milk of Magnesia 30 ML ORAL.SUSP PO (20:50)
--- NOTE | 2022-12-09 22:46 | PC.NURSE ---
Resp even non-labored. No SOB reported or observed.
--- NOTE | 2022-12-09 22:52 | PC.NURSE ---
Request PRN meds
--- NOTE | 2022-12-09 22:54 | PC.NURSE ---
Melissa was verbally responsive during 1:1 interaction, denies SI/AVH. Stated she didn't shower today today because she wasn't feeling up to it.
[2022-12-10 08:15] VITALS: BP 103/55; PULSE 73; RESP 18; TEMP 36.6; O2SAT 97
[2022-12-10] MEDS: QUEtiapine Fumarate 50 MG TABLET PO ×2 (08:20→18:17)
[2022-12-10] MEDS: clonazePAM 0.5 MG TABLET PO ×2 (08:20→22:24)
[2022-12-10] MEDS: oxyCODONE HCl Immed Release 5 MG TABLET PO ×3 (08:20→22:24)
[2022-12-10] MEDS: Cyanocobalamin (Vitamin B-12) 500 MCG TABLET PO (08:21)
[2022-12-10] MEDS: lisinopriL 10 MG TABLET PO (08:21)
[2022-12-10] MEDS: Cholecalciferol (Vitamin D3) 25 MCG TABLET PO (08:21)
--- NOTE | 2022-12-10 15:26 | P.PNPSI_ITS ---
Subjective Subjective Date of Service: 12/10/22 Reason For Visit: Psychosis Subjective Notes: Conditional Voluntary Interim History: Pt denies SI/HI. Pt not happy that she was not prescribed additional opioid meds for pain nor given adderall for attention problems. However, pt has not been aggressive towards self or others. Pt mostly in room. Pt wants to go back to [facility]. Mental Status Exam Mental Status Exam Narrative: Appearance: casually groomed, poor hygiene, disheveled, in NAD Behavior: guarded, irritable Psychomotor: no agitation or retardation noted Speech: clear, regular rate/rhythm/volume, spontaneous TP: circumstantial, disorganized at times TC: paranoid delusions Mood: not assessed Affect: hyper-intense, mod-labile SI: none expressed HI: none expressed AH/VH: none expressed Delusions: paranoid delusions Insight/judgment: impaired x 2. Alert, oriented to place, year, month not situation Diagnostics Vital Signs (24Hr): Vital Signs - 24 hr 12/09/22 20:15 12/10/22 08:15 Temperature 97.8 F 97.9 F Pulse Rate 78 73 Respiratory Rate 16 18 Blood Pressure 122/54 L 103/55 L Pulse Oximetry 98 97 Oxygen Delivery Method Room Air Room Air Medications Medications Current Medications Acetaminophen (Acetaminophen 325 Mg Tablet) 650 mg PO Q6H PRN PRN Reason: Headache/Pain Mild Scale (1-3) Al Hydroxide/Mg Hydroxide (Magnesium Hydrox/Alum Hydrox 30 Ml Oral.Susp) 30 ml PO Q6H PRN PRN Reason: Heartburn/Nausea Calcium Carbonate (Calcium Carbonate 750 Mg Tab.Chew) 750 mg PO Q4H PRN PRN Reason: Acid Reflux Clonazepam (Clonazepam 0.5 Mg Tablet) 0.5 mg PO BID PRN PRN Reason: anxiety Last Admin: 12/10/22 08:20 Dose: 0.5 mg Cyanocobalamin (Cyanocobalamin (Vitamin B-12) 500 Mcg Tablet) 500 mcg PO DAILY AD Last Admin: 12/10/22 08:21 Dose: 500 mcg Hydroxyzine HCl (Hydroxyzine Hcl 25 Mg Tablet) 25 mg PO Q6H PRN PRN Reason: Anxiety Lisinopril (Lisinopril 10 Mg Tablet) 10 mg PO DAILY [facility]; Protocol Last Admin: 12/10/22 08:21 Dose: 10 mg Loperamide HCl (Loperamide Hcl 2 Mg Capsule) 2 mg PO Q4H PRN PRN Reason: Diarrhea Magnesium Hydroxide (Milk Of Magnesia 30 Ml Oral.Susp) 30 ml PO DAILY PRN PRN Reason: Constipation Last Admin: 12/09/22 20:50 Dose: 30 ml Nicotine Polacrilex (Nicotine Polacrilex 2 Mg Gum) 2 mg BUCCAL Q2H PRN PRN Reason: CRAVINGS Last Admin: 12/09/22 09:45 Dose: 2 mg Oxycodone HCl (Oxycodone Hcl Immed Release 5 Mg Tablet) 5 mg PO Q6H PRN PRN Reason: Pain, Moderate (Pain Scale 4-6 Last Admin: 12/10/22 08:20 Dose: 5 mg Quetiapine Fumarate (Quetiapine Fumarate 50 Mg Tablet) 50 mg PO TID PRN PRN Reason: Agitation Last Admin: 12/10/22 08:20 Dose: 50 mg Trazodone HCl (Trazodone Hcl 50 Mg Tablet) 50 mg PO BEDTIME PRN PRN Reason: Insomnia Last Admin: 12/09/22 22:19 Dose: 50 mg Vitamin D (Cholecalciferol (Vitamin D3) 25 Mcg Tablet) 25 mcg PO DAILY AD Last Admin: 12/10/22 08:21 Dose: 25 mcg Allergies Allergies Allergy/AdvReac Type Severity Reaction Status Date / Time acetaminophen Allergy Unknown Verified 12/09/22 08:51 ibuprofen [From Motrin] Allergy Unknown Verified 12/09/22 08:51 pseudoephedrine Allergy Unknown Verified 12/09/22 08:51 [From Sudafed] Assessment & Plan Assessment & Plan (1) Schizophrenia, paranoid, subchronic with acute exacerbation: Status: Acute Code(s): F20.0 - Paranoid schizophrenia Plan Mrs. Bansal is a 62 year-old woman with hx consistent with schizophrenia who was initially transferred to [facility] from [facility] for treatment of paranoid delusions and psychosis. Pt was transferred to [facility] via EMS after pt had episode of syncope and presented hypotensive. In ED, pt found to have hypotension s/s to dehydration due to diarrhea and vomiting in setting of norovirus. Pt briefly admitted medically for management of hypotension. On the unit, pt presents with paranoid delusions, cap gras delusions thinking people are not who they say they are and she can't trust that family calling hospital are truly her family. Pt declines starting an antipsychotic. Pt insists she needs adderall for attention problems. Pt explained stimulant will worsened delusions, and psychosis. Pt declines any other medication at this. 12/06 continue tx. declines antipsychotic scheduled. 12/07 continue tx 12/08 continue tx. d/c sometime this week to half-way in [place]. 12/09: continue current mgmt. 12/10 continue tx. d/c [place]. Reason for contiued inpatient stay Substantial Risk for: inability to function Time Spent With Patient Time: Total time managing care of this patient today ____ minutes.
[2022-12-10] MEDS: Nicotine Polacrilex 2 MG GUM BUCCAL ×2 (15:58→18:17)
[2022-12-10 22:15] VITALS: BP 96/54; PULSE 68; RESP 18; TEMP 36.7; O2SAT 97
[2022-12-10] MEDS: traZODone HCL 50 MG TABLET PO (22:24)
[2022-12-11] MEDS: oxyCODONE HCl Immed Release 5 MG TABLET PO ×2 (04:30→10:05)
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
[2022-12-11] MEDS: Cholecalciferol (Vitamin D3) 25 MCG TABLET PO (09:06)
[2022-12-11] MEDS: Cyanocobalamin (Vitamin B-12) 500 MCG TABLET PO (09:06)
[2022-12-11] MEDS: clonazePAM 0.5 MG TABLET PO (09:10)
[2022-12-11] MEDS: QUEtiapine Fumarate 50 MG TABLET PO (09:10)
== END 2022-12-11 10:45 | disposition home or self-care (01) | DRG 885 ==
PROVIDERS: Admitting Provider Psychiatry & Neurology Psychiatry; Visit Provider Social Worker
DX: F20.0 Paranoid schizophrenia (principal); K21.9 Gastro-esophageal reflux disease without esophagitis; I10 Essential (primary) hypertension; F17.210 Nicotine dependence, cigarettes, uncomplicated; Z71.6 Tobacco abuse counseling; Z88.6 Allergy status to analgesic agent; Z88.8 Allergy status to other drugs, medicaments and biological substances; Z79.899 Other long term (current) drug therapy